=== PATIENT | male | born 1945 | race Caucasian/White ===

== ENCOUNTER 2016-06-24 13:57 | Inpatient (IN) | payer MEDICARE, BC ==
[2016-06-24] MEDS ORDERED: Sodium Chloride 0.9% 10 ML Syringe FLUSH PRN (15:12)
[2016-06-24] MEDS ORDERED: Bisacodyl 5 MG Tab PO ONE (15:30)
[2016-06-24] MEDS ORDERED: BISACODYL 5 MG PO ONE (16:00)
[2016-06-24] MEDS ORDERED: Acetaminophen 325 MG Tab PO PRN (16:12)
[2016-06-24] MEDS ORDERED: POLYETHYLENE GLYCOL 238 GM PO ONE (17:00)
[2016-06-24] MEDS: BISACODYL 5 MG PO ONE ×2 (19:39)
[2016-06-24] MEDS ORDERED: Non-Formulary Medication 1 Each (Acetaminophen [Acetaminophen Er] 650 MG) PO PRN (23:05)
[2016-06-24] MEDS ORDERED: Zinc Oxide 20% Oint 453.6 GM Jar TOP SCH (23:15)
--- NOTE | 2016-06-24 23:44 | PCM.HP ---
H&P History of Present Illness - General Date of Service: 06/24/16 Admit Problem/Dx: Admission Diagnosis/Problem Admission Diagnosis/Problem Diarrhea Source of Information: Patient, Old records History Limitations: Reports: No limitations - History of Present Illness Initial Comments - Free Text/Narative: Yariel comes in for evaluation he's been having diarrhea recently for several months actually and comes in for a colonoscopy to be done tomorrow morning. He is disabled has had a cerebrovascular accident in the past and is unable to care for himself alone. Onset of Symptoms: Reports: gradual Duration of Symptoms: Reports: Week(s): Location: Reports: other (diarrhea) - Related Data Allergies/Adverse Reactions: Allergies Allergy/AdvReac Type Severity Reaction Status Date / Time latex Allergy Rash Verified 06/24/16 15:16 Home Medications: Home Meds Acetaminophen [Acetaminophen ER] 650 mg PO Q4HR PRN 06/22/16 [History] Potassium Chloride 10 meq PO DAILY 06/22/16 [History] Rosuvastatin Calcium 10 mg PO DAILY 06/22/16 [History] Verapamil HCl [Verapamil ER Pm] 100 mg PO DAILY 06/22/16 [History] Zinc Oxide [Zinc Oxide 20% Oint] 1 gm TOP ASDIRECTED 06/22/16 [History] predniSONE [Prednisone] 2.5 mg PO DAILY 06/22/16 [History] Past Medical History HEENT History: Reports: Cataract, Impaired vision Cardiovascular History: Reports: Angina, High cholesterol, Hypertension, SOB on exertion Respiratory History: Reports: COPD Genitourinary History: Reports: Renal calculus Musculoskeletal History: Reports: Back pain, chronic, Neck pain, chronic Other Neuro History: right side partial paralysis Psychiatric History: Reports: Anxiety, Depression Endocrine/Metabolic History: Reports: Diabetes, type II Other Dermatologic History: yeast infection - Infectious Disease History Infectious Disease History: Reports: Chicken pox, Measles, Mumps - Past Surgical History GI Surgical History: Reports: Hernia, abdominal Male Surgical History: Reports: Lithotripsy (ESWL) Other Neurological Surgeries/Procedures: partial severed c-spine - plate in place Social & Family History - Tobacco Use Smoking Status *Q: Never Smoker Second Hand Smoke Exposure: No - Caffeine Use Caffeine Use: Reports: Coffee - Recreational Drug Use Recreational Drug Use: No H&P Review of Systems - Review of Systems: Review Of Systems: See Below General: Reports: weakness, fatigue HEENT: Reports: no symptoms Pulmonary: Reports: shortness of breath Cardiovascular: Reports: no symptoms Gastrointestinal: Reports: Diarrhea Genitourinary: Reports: no symptoms Musculoskeletal: Reports: no symptoms Skin: Reports: no symptoms Psychiatric: Reports: no symptoms Neurological: Reports: no symptoms Exam - Exam Exam: See Below - Vital Signs Vital Signs: Last Vital Signs Temp 94.8 F L 06/24/16 22:33 Pulse 70 06/24/16 22:33 Resp 18 06/24/16 22:33 BP 144/80 H 06/24/16 22:33 Pulse Ox 94 L 06/24/16 22:33 Weight: 169 lb 8 oz - Exam General: alert, oriented, 4 HEENT: PERRLA, Hearing intact, Mucosa moist & pink, Nares patent, Normal nasal septum, Posterior pharynx clear, Conjunctiva clear, EOMI, EACs clear, TMs clear Neck: supple Lungs: Clear to auscultation, Normal respiratory effort Cardiovascular: regular rate, regular rhythm Abdomen: normal bowel sounds, soft Back Exam: normal inspection, full range of motion, NT Extremities: other (no acute pathology is evident.) Peripheral Pulses: 1+: carotid (L), carotid (R), brachial (R), radial (L) Skin: warm, dry, intact Neuro Extensive - Mental Status: alert, oriented x3 Neuro Extensive - Motor, Sensory, Reflexes: CN II-XII intact, abnormal gait Psychiatric: anxious - Patient Data Lab Results last 24 hrs: Laboratory Results - last 24 hr 06/24/16 Range/Units 23:20 WBC 7.7 (4.5-11.0) K/uL RBC 5.11 (4.30-5.90) M/uL Hgb 14.5 (12.0-15.0) g/dL Hct 43.8 (40.0-54.0) % MCV 86 (80-98) fL MCH 28 (27-31) pg MCHC 33 (32-36) % Plt Count 323 (150-400) K/uL Neut % (Auto) 56 (36-66) % Lymph % (Auto) 23 L (24-44) % [place] % (Auto) 16 H (2-6) % Eos % (Auto) 5 H (2-4) % Baso % (Auto) 1 (0-1) % Result Diagrams: 06/24/16 23:20 *Q Meaningful Use (ADM) - VTE *Q VTE Criteria *Q: - Stroke *Q Stroke Criteria *Q: - AMI *Q AMI Criteria *Q: Problem List Initiated/Reviewed/Updated: Yes Orders Last 24hrs: Active Orders 24 hr Category Date Time Status Patient Status [ADT] Routine ADT 06/24/16 22:56 Active Bedrest Bedside Commode [RC] ASDIRECTED Care 06/24/16 22:55 Active Height and Weight [RC] DAILY Care 06/24/16 22:55 Active Intake and Output [RC] QSHIFT Care 06/24/16 23:01 Active Oxygen Therapy [RC] PRN Care 06/24/16 22:56 Active Peripheral IV Care [RC] . DIRECTED Care 06/24/16 15:12 Active Up to Chair [RC] QID Care 06/24/16 22:55 Active VTE/DVT Education [RC] Per Unit Routine Care 06/24/16 22:56 Active Vital Signs [RC] Q4H Care 06/24/16 22:56 Active NPO After Midnight [Nothing per Oral After Midnight Diet 06/24/16 Dinner Active Diet] [DIET] COMPREHENSIVE METABOLIC PN,CMP [CHEM] Routine Lab 06/24/16 23:20 Received Acetaminophen [Acetaminophen ER] Med 06/24/16 23:05 Pending 650 mg PO Q4HR PRN Acetaminophen [Tylenol] Med 06/24/16 16:12 Active 650 mg PO Q4H PRN Hydrochlorothiazide Med 06/25/16 05:00 Active 12.5 mg PO DAILY@0500 Patient's Own Medication [Ptom] Med 06/25/16 05:00 Active 0 each PO DAILY@0500 Patient's Own Medication [Ptom] Med 06/25/16 05:00 Active 0 each PO DAILY@0500 Potassium Chloride Med 06/25/16 09:00 Active 10 meq PO DAILY Potassium Chloride Med 06/25/16 05:00 Active 10 meq PO DAILY@0500 Rosuvastatin [Crestor] Med 06/25/16 09:00 Active 10 mg PO DAILY Simvastatin [Zocor] Med 06/25/16 05:00 Active 10 mg PO DAILY@0500 Sodium Chloride 0.9% [Saline Flush] Med 06/24/16 15:12 Active 10 ml FLUSH ASDIRECTED PRN Verapamil [Calan SR] Med 06/25/16 05:00 Active 240 mg PO DAILY@0500 Verapamil [Verelan PM] Med 06/25/16 09:00 Active 100 mg PO DAILY Zinc Oxide [Zinc Oxide 20% Oint] Med 06/24/16 23:15 Pending 1 gm TOP ASDIRECTED Peripheral IV Insertion Adult [OM.PC] Routine Oth 06/24/16 15:12 Ordered Resuscitation Status Routine Resus Stat 06/24/16 22:55 Ordered Medication Orders Acetaminophen (Tylenol) 650 mg PO Q4H PRN PRN Reason: PAIN Hydrochlorothiazide (Hydrochlorothiazide) 12.5 mg PO DAILY@0500 COUNTS INCLUDE 234 BEDS AT THE [facility] Multi-Ingred Cream/Lotion/Oil/Oint (Zinc Oxide 20% Oint) 1 gm TOP ASDIRECTED COUNTS INCLUDE 234 BEDS AT THE [facility] Non-Formulary Medication (Acetaminophen [Acetaminophen Er]) 650 mg PO Q4HR PRN PRN Reason: Pain Prednisone 2.5 Mg (TabPom) 0 each PO DAILY@0500 COUNTS INCLUDE 234 BEDS AT THE [facility] Century Complete (VitaminPom) 0 each PO DAILY@0500 COUNTS INCLUDE 234 BEDS AT THE [facility] Potassium Chloride (Potassium Chloride) 10 meq PO DAILY@0500 COUNTS INCLUDE 234 BEDS AT THE [facility] Potassium Chloride (Potassium Chloride) 10 meq PO DAILY COUNTS INCLUDE 234 BEDS AT THE [facility] Rosuvastatin Calcium (Crestor) 10 mg PO DAILY [facility]UBIA Simvastatin (Zocor) 10 mg PO DAILY@0500 COUNTS INCLUDE 234 BEDS AT THE [facility] Sodium Chloride (Saline Flush) 10 ml FLUSH ASDIRECTED PRN PRN Reason: Keep Vein Open Verapamil HCl (Calan Sr) 240 mg PO DAILY@0500 COUNTS INCLUDE 234 BEDS AT THE [facility] Verapamil HCl (Verelan Pm) 100 mg PO DAILY COUNTS INCLUDE 234 BEDS AT THE [facility] Assessment/Plan Comment:: Assessment/Plan: #1. Diarrhea. I brought into the hospital as we did do his prep is he is disabled and unable to care for himself taking the laxatives. a colonoscopy is scheduled for tomorrow. #2. Cervical neck injury with spinal cord injury. #3. Hypertension. we'll continue with this medication. #4. Hyperlipidemia. We'll continue with rosuvastatin.
[2016-06-25] MEDS ORDERED: Potassium Chloride 20 MEQ Tab.ER PO ONE (00:15)
[2016-06-25] MEDS: Potassium Chloride 20 MEQ in Premix Bag 1 BAG IV SCH ×3 (00:46→05:56)
[2016-06-25] MEDS ORDERED: Zinc Oxide 20% Oint 56.7 GM Tube TOP PRN (01:32)
[2016-06-25] MEDS ORDERED: PREDNISONE 2.5 MG PO SCH (05:00)
[2016-06-25] MEDS ORDERED: VERAPAMIL 240 MG PO SCH (05:00)
[2016-06-25] MEDS ORDERED: SIMVASTATIN 20 MG PO SCH (05:00)
[2016-06-25] MEDS ORDERED: POTASSIUM CHLORIDE 10 MEQ PO SCH (05:00)
[2016-06-25] MEDS ORDERED: [UNRECOGNIZED DRUG - OTHER] PO SCH (05:00)
[2016-06-25] MEDS ORDERED: HYDROCHLOROTHIAZIDE 12.5 MG PO SCH (05:00)
[2016-06-25] MEDS ORDERED: Midazolam 1 MG/ML 2 ML SDV ONE (08:10)
[2016-06-25] MEDS ORDERED: fentaNYL 100 MCG/2 ML SDV ONE (08:10)
[2016-06-25] MEDS ORDERED: Propofol 200 MG/20 ML SDV ONE ×2 (08:10→09:25)
[2016-06-25] MEDS ORDERED: VERAPAMIL PM 100 MG PO SCH (09:00)
[2016-06-25] MEDS ORDERED: Potassium Chloride 10 MEQ Cap.ER PO SCH (09:00)
--- NOTE | 2016-06-25 09:42 | PCM.OPNOTE ---
- General Post-Op/Procedure Note Date of Surgery/Procedure: 06/25/16 Findings: megacolon Pre Op Diagnosis: diarrhea, change in bowel habits Post-Op Diagnosis: no acute pathology. Megacolon Primary Surgeon: Juarez Wall Sr Condition: Stable Free Text/Narrative:: Yariel is a 71-year-old male comes in because of change in bowel habits and diarrhea comes in for colonoscopy.The risks and benefits were explained to the patient was taken to the or. Anesthesia was given by nurse desktop architect. During the procedure we used 2 mg of Versed 2 mL of fentanyl and 400 mg of propofol. The Olympus 180L scope was used. With the gloved finger the rectum was examined and there and they irregularity of the prostate which is firm with a nodule on the right. The tube was placed into the rectum and advanced under direct vision. There is a large amount of fluid noted in the colon 500 mL of fluid area we had to put in pressure and abdomen order to get to the cecum. . At the cecum noted no abnormality. Upon retraction of the tube noted no mucosal lesion ulceration or abnormality throughout the entire colon. There is mild erythema noted at the rectum. The tube was removed the patient tolerated the procedure well. Preop: Change in bowel habits, diarrhea. Postop: No acute pathology noted. megacolon. This does explain his change in bowel habits and diarrhea.
--- NOTE | 2016-06-25 13:46 | CR ---
Abdomen 2V AP Flat Upright HISTORY: Follow-up colonoscopy. COMPARISON: 03/22/2015. FINDINGS: Distention of the transverse colon. This is likely ileus post colonoscopy. No strong evide nce for obstruction. No free air seen.
[2016-06-25] MEDS: Rosuvastatin 10 MG Tab PO SCH (16:03)
[2016-06-25] MEDS: Dextrose 5%-Lactated Ringers 1,000 ML IV SCH (16:16)
[2016-06-25] MEDS: Potassium Chloride 20 MEQ, Lidocaine 1% 2 ML in Sodium Chloride 0.9% 100 ML IV SCH ×4 (16:56→23:26)
--- NOTE | 2016-06-25 18:40 | PCM.PN ---
- General Info Date of Service: 06/25/16 Subjective Update: He continues to have diarrhea and we spoke with him after the colonoscopy I got the report of a flat plate and I feel that he is making: He wants something done. He is anxious to have the diarrhea controlled. - Review of Systems General: Reports: weakness HEENT: Reports: no symptoms Pulmonary: Reports: no symptoms Cardiovascular: Reports: no symptoms Gastrointestinal: Reports: Diarrhea Genitourinary: Reports: no symptoms Musculoskeletal: Reports: other (Consistent with the right sided weakness after the spinal cord injury) Skin: Reports: no symptoms Neurological: Reports: difficulty walking, weakness, gait disturbance Psychiatric: Reports: depression, anxiety - Patient Data Vitals - most recent: Last Vital Signs Temp 96.7 F 06/25/16 14:22 Pulse 70 06/25/16 14:22 Resp 16 06/25/16 14:22 BP 130/67 06/25/16 14:22 Pulse Ox 98 06/25/16 14:22 Weight - most recent: 169 lb 8.003 oz I&O - last 24 hours: Intake & Output 06/25/16 06/25/16 06/25/16 06:59 14:59 22:59 Intake Total 200 75 820 Output Total 225 Balance 200 75 595 Lab Results last 24 hrs: Laboratory Results - last 24 hr 06/24/16 06/24/16 06/25/16 Range/Units 23:20 23:20 10:25 WBC 7.7 (4.5-11.0) K/uL RBC 5.11 (4.30-5.90) M/uL Hgb 14.5 (12.0-15.0) g/dL Hct 43.8 (40.0-54.0) % MCV 86 (80-98) fL MCH 28 (27-31) pg MCHC 33 (32-36) % Plt Count 323 (150-400) K/uL Neut % (Auto) 56 (36-66) % Lymph % (Auto) 23 L (24-44) % [place] % (Auto) 16 H (2-6) % Eos % (Auto) 5 H (2-4) % Baso % (Auto) 1 (0-1) % Sodium 138 L (140-148) mmol/L Potassium 2.4 L* (3.6-5.2) mmol/L Chloride 97 L (100-108) mmol/L Carbon Dioxide 34 H (21-32) mmol/L Anion Gap 9.4 (5.0-14.0) mmol/L BUN 13 (7-18) mg/dL Creatinine 0.9 (0.8-1.3) mg/dL Est Cr Clr Drug Dosing 69.36 mL/min Estimated GFR (MDRD) > 60 (>60) Glucose 83 (74-106) mg/dL Calcium 8.7 (8.5-10.1) mg/dL Total Bilirubin 0.9 D (0.2-1.0) mg/dL AST 20 (15-37) U/L ALT 27 (12-78) U/L Alkaline Phosphatase 75 (46-116) U/L Total Protein 7.4 (6.4-8.2) g/dL Albumin 3.5 (3.4-5.0) g/dL Globulin 3.9 H (2.3-3.5) g/dL Albumin/Globulin Ratio 0.9 L (1.2-2.2) Prostate Specific Ag 6.6 H (0.0-4.0) ug/L Med Orders - Current: Current Medications Acetaminophen (Tylenol) 650 mg PO Q4H PRN PRN Reason: PAIN Hydrochlorothiazide (Hydrochlorothiazide) 12.5 mg PO DAILY@0500 [facility] Dextrose/Lactated Ringer's (Dextrose 5%-Lactated Ringers) 1,000 mls @ 100 mls/ hr IV ASDIRECTED [facility] Last Admin: 06/25/16 16:16 Dose: 100 mls/hr Potassium Chloride 20 meq/Lidocaine HCl 2 ml/ Sodium Chloride 112 mls @ 56 mls/ hr IV Q2H [facility] Stop: 06/26/16 02:59 Last Admin: 06/25/16 16:56 Dose: 56 mls/hr Multi-Ingred Cream/Lotion/Oil/Oint (Zinc Oxide) 0 gm TOP Q1H PRN PRN Reason: Rash Multivitamins/Minerals (Thera M Plus) 1 tab PO DAILY@0500 [facility] Potassium Chloride (Potassium Chloride) 10 meq PO DAILY@0500 [facility] Prednisone (Prednisone) 3.75 mg PO DAILY@0500 [facility] Rosuvastatin Calcium (Crestor) 10 mg PO DAILY [facility] Last Admin: 06/25/16 16:03 Dose: Not Given Sodium Chloride (Saline Flush) 10 ml FLUSH ASDIRECTED PRN PRN Reason: Keep Vein Open Verapamil HCl (Calan Sr) 240 mg PO DAILY@0500 [facility] Discontinued Medications Bisacodyl (Dulcolax) 10 mg PO ONETIME ONE Stop: 06/24/16 15:31 Last Admin: 06/24/16 19:41 Dose: Not Given Bisacodyl (Dulcolax) 10 mg PO ONETIME ONE Stop: 06/24/16 20:01 Last Admin: 06/24/16 19:39 Dose: Not Given Bisacodyl (Dulcolax) 10 mg PO ONETIME ONE Stop: 06/24/16 16:01 Last Admin: 06/24/16 16:14 Dose: 10 mg Fentanyl (Sublimaze) Confirm Administered Dose 100 mcg .ROUTE .STK-MED ONE Stop: 06/25/16 08:11 Hydrochlorothiazide (Hydrochlorothiazide) 12.5 mg PO DAILY@0500 [facility] Last Admin: 06/25/16 12:22 Dose: 12.5 mg Potassium Chloride 20 meq/ (Premix) 100 mls @ 50 mls/hr IV Q2H [facility] Stop: 06/25/16 05:59 Last Admin: 06/25/16 05:56 Dose: 50 mls/hr Lidocaine HCl (Xylocaine-Mpf 1%) 10 ml INJECT ONETIME ONE Stop: 06/25/16 00:17 Last Admin: 06/25/16 00:47 Dose: 2 ml Lidocaine HCl (Xylocaine-Mpf 1%) Confirm Administered Dose 5 ml .ROUTE .STK-MED ONE Stop: 06/25/16 04:36 Last Admin: 06/25/16 05:57 Dose: 2 ml Midazolam HCl (Versed 1 Mg/Ml) Confirm Administered Dose 2 mg .ROUTE .STK-MED ONE Stop: 06/25/16 08:11 Multi-Ingred Cream/Lotion/Oil/Oint (Zinc Oxide 20% Oint) 1 gm TOP ASDIRECTED [facility] Non-Formulary Medication (Acetaminophen [Acetaminophen Er]) 650 mg PO Q4HR PRN PRN Reason: Pain Prednisone 2.5 Mg (TabPom) 0 each PO DAILY@0500 [facility] Last Admin: 06/25/16 12:23 Dose: 1 each Century Complete (VitaminPom) 0 each PO DAILY@0500 [facility] Last Admin: 06/25/16 12:23 Dose: 1 each Polyethylene Glycol (Miralax) 238 gm PO ONETIME ONE Stop: 06/24/16 17:01 Last Admin: 06/24/16 17:02 Dose: 238 gm Potassium Chloride (Potassium Chloride) 10 meq PO DAILY@0500 [facility] Last Admin: 06/25/16 12:22 Dose: 10 meq Potassium Chloride (Potassium Chloride) 10 meq PO DAILY [facility] Potassium Chloride (Klor-Con M20) 40 meq PO ONETIME ONE Stop: 06/25/16 00:16 Last Admin: 06/25/16 00:53 Dose: 40 meq Propofol (Diprivan 20 Ml) Confirm Administered Dose 200 mg .ROUTE .STK-MED ONE Stop: 06/25/16 08:11 Propofol (Diprivan 20 Ml) Confirm Administered Dose 200 mg .ROUTE .STK-MED ONE Stop: 06/25/16 09:26 Simvastatin (Zocor) 10 mg PO DAILY@0500 [facility] Verapamil HCl (Calan Sr) 240 mg PO DAILY@0500 [facility] Last Admin: 06/25/16 12:22 Dose: 240 mg Verapamil HCl (Verelan Pm) 100 mg PO DAILY [facility] - Exam General: alert, oriented, cooperative, mild distress HEENT: Pupils equal, Pupils reactive, EOMI, Mucous membr. moist/pink Neck: supple Lungs: Clear to auscultation, Normal respiratory effort Cardiovascular: regular rate, regular rhythm Abdomen: bowel sounds present, soft, no tenderness, no distension Peripheral Pulses: 1+: radial (L), radial (R) Skin: warm, dry, intact Neurological: no new focal deficit Psy/Mental Status: alert, anxious - Problem List Review Problem List Initiated/Reviewed/Updated: Yes - My Orders Last 24 Hours: My Active Orders 06/24/16 22:55 Bedrest Bedside Commode [RC] ASDIRECTED Height and Weight [RC] DAILY Up to Chair [RC] QID Resuscitation Status Routine 06/24/16 22:56 Patient Status [ADT] Routine Oxygen Therapy [RC] PRN VTE/DVT Education [RC] Per Unit Routine Vital Signs [RC] Q4H 06/24/16 23:01 Intake and Output [RC] QSHIFT 06/25/16 01:32 Zinc Oxide 0 gm TOP Q1H PRN 06/25/16 08:45 Verify Patient Consent Obtain [RC] ASDIRECTED 06/25/16 09:00 Rosuvastatin [Crestor] 10 mg PO DAILY 06/25/16 Lunch Regular Diet [DIET] 06/26/16 05:00 Hydrochlorothiazide 12.5 mg PO DAILY@0500 Multivitamins w-Iron/Ca/FA/Min [Thera M Plus] 1 tab PO DAILY@0500 Potassium Chloride 10 meq PO DAILY@0500 Verapamil [Calan SR] 240 mg PO DAILY@0500 predniSONE 3.75 mg PO DAILY@0500 06/26/16 14:52 Ready for Discharge [RC] PER UNIT ROUTINE - Plan Plan:: Assessment/Plan: #1. Diarrhea. I did do a colonoscopy this morning which found a very large colon consistent with megacolon. There is no other acute pathology noted in the colon. I did get a flat and upright of the abdomen which showed a very large colon. I feel that he needs to have a colectomy and a colostomy as the problem may have been caused by inactivity and his spinal cord injury. I spoke with Yariel as well as his sister and they are in favor of having something done as he is unable to control his bowel movements at home. He said at night his bowels move continually and when he tries to go to bathroom and he has incontinence and leaks on the floor. I have spoken with Dr. Javier Roberts who performed a colectomy tomorrow. #2. Cervical neck injury with spinal cord injury. #3. Hypertension. we'll continue with this medication. #4. Hyperlipidemia. We'll continue with rosuvastatin. #5. Hypokalemia: This is secondary to his constant diarrhea and I had been replacing his potassium. As it was 2.4 this morning I will do another potassium check this evening.
[2016-06-26] MEDS: Potassium Chloride 20 MEQ, Lidocaine 1% 2 ML in Sodium Chloride 0.9% 100 ML IV SCH ×3 (01:56→10:25)
[2016-06-26] MEDS: Dextrose 5%-Lactated Ringers 1,000 ML IV SCH ×2 (01:58→13:36)
[2016-06-26] MEDS ORDERED: Potassium Chloride 10 MEQ Cap.ER PO SCH (05:00)
[2016-06-26] MEDS ORDERED: predniSONE 5 MG Tab PO SCH (05:00)
[2016-06-26] MEDS ORDERED: cefOXitin 2 GM in Sodium Chloride 0.9% 50 ML IV ONE (07:15)
--- NOTE | 2016-06-26 08:36 | PCM.PN ---
- General Info Date of Service: 06/26/16 Subjective Update: He has no complaints at the present time is looking forward to having the colon taken out so he can control his bowels. Functional Status: Reports: pain controlled - Review of Systems General: Reports: no symptoms HEENT: Reports: no symptoms Pulmonary: Reports: no symptoms Cardiovascular: Reports: no symptoms Gastrointestinal: Reports: Diarrhea Genitourinary: Reports: no symptoms Skin: Reports: no symptoms Neurological: Reports: no symptoms Psychiatric: Reports: no symptoms - Patient Data Vitals - most recent: Last Vital Signs Temp 96.4 F 06/26/16 07:00 Pulse 66 06/26/16 07:00 Resp 18 06/26/16 07:00 BP 128/80 06/26/16 07:00 Pulse Ox 94 L 06/26/16 07:00 Weight - most recent: 169 lb 8.003 oz I&O - last 24 hours: Intake & Output 06/25/16 06/26/16 06/26/16 22:59 06:59 14:59 Intake Total 920 1465 Output Total 950 200 Balance -30 1265 Lab Results last 24 hrs: Laboratory Results - last 24 hr 06/25/16 06/25/16 06/26/16 Range/Units 10:25 18:52 04:00 WBC (4.5-11.0) K/uL RBC (4.30-5.90) M/uL Hgb (12.0-15.0) g/dL Hct (40.0-54.0) % MCV (80-98) fL MCH (27-31) pg MCHC (32-36) % Plt Count (150-400) K/uL Neut % (Auto) (36-66) % Lymph % (Auto) (24-44) % [place] % (Auto) (2-6) % Eos % (Auto) (2-4) % Baso % (Auto) (0-1) % Sodium 143 (140-148) mmol/L Potassium 3.4 L 3.3 L (3.6-5.2) mmol/L Chloride 107 (100-108) mmol/L Carbon Dioxide 31 (21-32) mmol/L Anion Gap 8.3 (5.0-14.0) mmol/L BUN 11 (7-18) mg/dL Creatinine 0.8 (0.8-1.3) mg/dL Est Cr Clr Drug Dosing 77.84 mL/min Estimated GFR (MDRD) > 60 (>60) Glucose 111 H (74-106) mg/dL Calcium 7.9 L (8.5-10.1) mg/dL Phosphorus 3.2 (2.5-4.9) mg/dL Magnesium 1.7 L (1.8-2.4) mg/dL [id number] Pept 203 H (5-125) pg/mL Prostate Specific Ag 6.6 H (0.0-4.0) ug/L 06/26/16 Range/Units 05:11 WBC 6.4 (4.5-11.0) K/uL RBC 4.80 (4.30-5.90) M/uL Hgb 13.6 (12.0-15.0) g/dL Hct 41.4 (40.0-54.0) % MCV 86 (80-98) fL MCH 28 (27-31) pg MCHC 33 (32-36) % Plt Count 301 (150-400) K/uL Neut % (Auto) 45 (36-66) % Lymph % (Auto) 33 (24-44) % [place] % (Auto) 15 H (2-6) % Eos % (Auto) 6 H (2-4) % Baso % (Auto) 1 (0-1) % Sodium (140-148) mmol/L Potassium (3.6-5.2) mmol/L Chloride (100-108) mmol/L Carbon Dioxide (21-32) mmol/L Anion Gap (5.0-14.0) mmol/L BUN (7-18) mg/dL Creatinine (0.8-1.3) mg/dL Est Cr Clr Drug Dosing mL/min Estimated GFR (MDRD) (>60) Glucose (74-106) mg/dL Calcium (8.5-10.1) mg/dL Phosphorus (2.5-4.9) mg/dL Magnesium (1.8-2.4) mg/dL [id number] Pept (5-125) pg/mL Prostate Specific Ag (0.0-4.0) ug/L Med Orders - Current: Current Medications Acetaminophen (Tylenol) 650 mg PO Q4H PRN PRN Reason: PAIN Last Admin: 06/25/16 21:23 Dose: 650 mg Hydrochlorothiazide (Hydrochlorothiazide) 12.5 mg PO DAILY@0500 [facility] Dextrose/Lactated Ringer's (Dextrose 5%-Lactated Ringers) 1,000 mls @ 100 mls/ hr IV ASDIRECTED [facility] Last Admin: 06/26/16 01:58 Dose: 100 mls/hr Potassium Chloride 20 meq/Lidocaine HCl 2 ml/ Sodium Chloride 112 mls @ 56 mls/ hr IV Q2H RUBIA Stop: 06/26/16 11:29 Last Admin: 06/26/16 07:22 Dose: 56 mls/hr Methylprednisolone Sodium Succinate (Solu-Medrol) 60 mg IVPUSH ONCALL ONE Stop: 06/26/16 13:01 Multi-Ingred Cream/Lotion/Oil/Oint (Zinc Oxide) 0 gm TOP Q1H PRN PRN Reason: Rash Multivitamins/Minerals (Thera M Plus) 1 tab PO DAILY@0500 [facility] Potassium Chloride (Potassium Chloride) 10 meq PO DAILY@0500 [facility] Prednisone (Prednisone) 3.75 mg PO DAILY@0500 [facility] Rosuvastatin Calcium (Crestor) 10 mg PO DAILY [facility] Last Admin: 06/25/16 16:03 Dose: Not Given Sodium Chloride (Saline Flush) 10 ml FLUSH ASDIRECTED PRN PRN Reason: Keep Vein Open Verapamil HCl (Calan Sr) 240 mg PO DAILY@0500 [facility] Discontinued Medications Bisacodyl (Dulcolax) 10 mg PO ONETIME ONE Stop: 06/24/16 15:31 Last Admin: 06/24/16 19:41 Dose: Not Given Bisacodyl (Dulcolax) 10 mg PO ONETIME ONE Stop: 06/24/16 20:01 Last Admin: 06/24/16 19:39 Dose: Not Given Bisacodyl (Dulcolax) 10 mg PO ONETIME ONE Stop: 06/24/16 16:01 Last Admin: 06/24/16 16:14 Dose: 10 mg Fentanyl (Sublimaze) Confirm Administered Dose 100 mcg .ROUTE .STK-MED ONE Stop: 06/25/16 08:11 Hydrochlorothiazide (Hydrochlorothiazide) 12.5 mg PO DAILY@0500 [facility] Last Admin: 06/25/16 12:22 Dose: 12.5 mg Potassium Chloride 20 meq/ (Premix) 100 mls @ 50 mls/hr IV Q2H [facility] Stop: 06/25/16 05:59 Last Admin: 06/25/16 05:56 Dose: 50 mls/hr Potassium Chloride 20 meq/Lidocaine HCl 2 ml/ Sodium Chloride 112 mls @ 56 mls/ hr IV Q2H [facility] Stop: 06/26/16 02:59 Last Admin: 06/26/16 01:56 Dose: 56 mls/hr Cefoxitin Sodium 2 gm/ Sodium (Chloride) 50 mls @ 100 mls/hr IV ONCALL ONE Stop: 06/26/16 07:44 Lidocaine HCl (Xylocaine-Mpf 1%) 10 ml INJECT ONETIME ONE Stop: 06/25/16 00:17 Last Admin: 06/25/16 00:47 Dose: 2 ml Lidocaine HCl (Xylocaine-Mpf 1%) Confirm Administered Dose 5 ml .ROUTE .STK-MED ONE Stop: 06/25/16 04:36 Last Admin: 06/25/16 05:57 Dose: 2 ml Midazolam HCl (Versed 1 Mg/Ml) Confirm Administered Dose 2 mg .ROUTE .STK-MED ONE Stop: 06/25/16 08:11 Multi-Ingred Cream/Lotion/Oil/Oint (Zinc Oxide 20% Oint) 1 gm TOP ASDIRECTED [facility] Non-Formulary Medication (Acetaminophen [Acetaminophen Er]) 650 mg PO Q4HR PRN PRN Reason: Pain Prednisone 2.5 Mg (TabPom) 0 each PO DAILY@0500 [facility] Last Admin: 06/25/16 12:23 Dose: 1 each Century Complete (VitaminPom) 0 each PO DAILY@0500 [facility] Last Admin: 06/25/16 12:23 Dose: 1 each Polyethylene Glycol (Miralax) 238 gm PO ONETIME ONE Stop: 06/24/16 17:01 Last Admin: 06/24/16 17:02 Dose: 238 gm Potassium Chloride (Potassium Chloride) 10 meq PO DAILY@0500 [facility] Last Admin: 06/25/16 12:22 Dose: 10 meq Potassium Chloride (Potassium Chloride) 10 meq PO DAILY [facility] Potassium Chloride (Klor-Con M20) 40 meq PO ONETIME ONE Stop: 06/25/16 00:16 Last Admin: 06/25/16 00:53 Dose: 40 meq Propofol (Diprivan 20 Ml) Confirm Administered Dose 200 mg .ROUTE .STK-MED ONE Stop: 06/25/16 08:11 Propofol (Diprivan 20 Ml) Confirm Administered Dose 200 mg .ROUTE .STK-MED ONE Stop: 06/25/16 09:26 Simvastatin (Zocor) 10 mg PO DAILY@0500 [facility] Last Admin: 06/26/16 04:30 Dose: Not Given Verapamil HCl (Calan Sr) 240 mg PO DAILY@0500 [facility] Last Admin: 06/25/16 12:22 Dose: 240 mg Verapamil HCl (Verelan Pm) 100 mg PO DAILY [facility] - Exam General: alert, oriented HEENT: Pupils equal, Pupils reactive, EOMI, Mucous membr. moist/pink Neck: supple Lungs: Clear to auscultation, Normal respiratory effort Cardiovascular: regular rate, regular rhythm Abdomen: bowel sounds present, soft, no tenderness, no distension Peripheral Pulses: 1+: radial (L), radial (R) Skin: warm, dry, intact - Problem List Review Problem List Initiated/Reviewed/Updated: Yes - My Orders Last 24 Hours: My Active Orders 06/25/16 08:45 Verify Patient Consent Obtain [RC] ASDIRECTED 06/25/16 09:00 Rosuvastatin [Crestor] 10 mg PO DAILY 06/25/16 18:41 EKG 12 Lead [EK] Routine 06/26/16 05:00 Hydrochlorothiazide 12.5 mg PO DAILY@0500 Multivitamins w-Iron/Ca/FA/Min [Thera M Plus] 1 tab PO DAILY@0500 Potassium Chloride 10 meq PO DAILY@0500 Verapamil [Calan SR] 240 mg PO DAILY@0500 predniSONE 3.75 mg PO DAILY@0500 06/26/16 14:52 Ready for Discharge [RC] PER UNIT ROUTINE - Plan Plan:: Assessment/Plan: #1. Diarrhea. He is having a colectomy today and a colostomy. I feel that he is medically stable for the planned procedure. #3. Hypertension. we'll continue with this medication. #4. Hyperlipidemia. We'll continue with rosuvastatin. #5. Hypokalemia: This is secondary to his constant diarrhea and I had been replacing his potassium. As it was 2.4 this morning I will do another potassium check this evening. His potassium this morning was 3.3 supplementation is in progress.
[2016-06-26] MEDS: Verapamil 240 MG Tab.ER PO SCH (09:57)
[2016-06-26] MEDS: Hydrochlorothiazide 12.5 MG Cap PO SCH (10:24)
[2016-06-26] MEDS: Multivitamins with Iron/Calcium/Folic Acid/Minerals Tab PO SCH (10:28)
[2016-06-26] MEDS: Rosuvastatin 10 MG Tab PO SCH (10:29)
[2016-06-26] MEDS ORDERED: Naloxone 0.4 MG/ML SDV IVPUSH PRN (10:36)
[2016-06-26] MEDS ORDERED: Naloxone 0.4 MG/ML SDV IV PRN (10:39)
[2016-06-26] MEDS: HYDROmorphone/Normal Saline 15 MG/30 ML PCA IV PRN (10:44)
[2016-06-26] MEDS ORDERED: Meropenem 500 MG SDV IV ONE (11:08)
[2016-06-26] MEDS ORDERED: fentaNYL 250 MCG/5 ML SDV ONE (12:09)
[2016-06-26] MEDS ORDERED: Ondansetron 4 MG/2 ML SDV ONE (12:09)
[2016-06-26] MEDS ORDERED: Succinylcholine/Normal Saline 200 MG/10 ML Syringe ONE ×2 (12:09→15:54)
[2016-06-26] MEDS ORDERED: Neostigmine Methylsulfate 1 MG/ML 5 ML Syringe ONE (12:09)
[2016-06-26] MEDS ORDERED: Dexamethasone 4 MG/ML SDV ONE (12:09)
[2016-06-26] MEDS ORDERED: Rocuronium 50 MG/5 ML Vial ONE (12:09)
[2016-06-26] MEDS ORDERED: Propofol 200 MG/20 ML SDV ONE (12:09)
[2016-06-26] MEDS ORDERED: methylPREDNISolone Sodium Succinate 125 MG/2 ML SDV IVPUSH ONE (13:00)
[2016-06-26] MEDS ORDERED: Ketamine 500 MG/5 ML MDV ONE (14:32)
[2016-06-26] MEDS ORDERED: Midazolam 1 MG/ML 2 ML SDV ONE (14:33)
[2016-06-26] MEDS ORDERED: Sodium Chloride 0.9% 10 ML ONE (14:34)
[2016-06-26] MEDS: fentaNYL 12 MCG/HR Transdermal Patch TRDERM SCH (15:02)
[2016-06-26] MEDS ORDERED: Meropenem 500 MG SDV IRR ONE (16:00)
[2016-06-26] MEDS ORDERED: Zinc Oxide 20% Oint 56.7 GM Tube TOP PRN (17:28)
[2016-06-26] MEDS ORDERED: Ondansetron 4 MG/2 ML SDV IVPUSH PRN (17:30)
[2016-06-26] MEDS ORDERED: Acetaminophen 650 MG in Premix Bag 1 BAG IV PRN (17:33)
[2016-06-26] MEDS: FENTANYL PATCH CHECK TOP SCH ×2 (17:55→21:33)
[2016-06-26] MEDS: cefOXitin 2 GM in Sodium Chloride 0.9% 50 ML IV SCH (19:32)
[2016-06-26] MEDS: Zinc Oxide 20% Oint 56.7 GM Tube TOP SCH (21:34)
[2016-06-26] MEDS: methylPREDNISolone Sodium Succinate 125 MG/2 ML SDV IVPUSH SCH (21:34)
[2016-06-27] MEDS: Dextrose 5%-Lactated Ringers 1,000 ML IV SCH ×3 (00:30→14:28)
[2016-06-27] MEDS: cefOXitin 2 GM in Sodium Chloride 0.9% 50 ML IV SCH ×3 (03:19→14:29)
[2016-06-27] MEDS: Hydrochlorothiazide 12.5 MG Cap PO SCH (04:36)
[2016-06-27] MEDS: Verapamil 240 MG Tab.ER PO SCH (04:36)
[2016-06-27] MEDS: Multivitamins with Iron/Calcium/Folic Acid/Minerals Tab PO SCH (04:37)
[2016-06-27] MEDS: methylPREDNISolone Sodium Succinate 125 MG/2 ML SDV IVPUSH SCH (05:00)
[2016-06-27] MEDS ORDERED: methylPREDNISolone Sodium Succinate 40 MG/1 ML SDV IVPUSH ONE (09:00)
[2016-06-27] MEDS: Zinc Oxide 20% Oint 56.7 GM Tube TOP SCH ×2 (09:40→21:02)
[2016-06-27] MEDS: Magnesium Sulfate/Water 2 GM in Premix Bag 1 BAG IV SCH ×3 (09:40→23:49)
[2016-06-27] MEDS: FENTANYL PATCH CHECK TOP SCH ×2 (09:48→21:02)
[2016-06-27] MEDS: SODIUM CHLORIDE 0.9% IV SCH ×3 (11:35→21:01)
[2016-06-27] MEDS: POTASSIUM PHOSPHATES IV SCH ×3 (11:35→21:01)
[2016-06-27] MEDS: LIDOCAINE IV SCH ×3 (11:35→21:01)
[2016-06-28] MEDS: Magnesium Sulfate/Water 2 GM in Premix Bag 1 BAG IV SCH ×4 (05:07→21:51)
[2016-06-28] MEDS: Multivitamins with Iron/Calcium/Folic Acid/Minerals Tab PO SCH (05:08)
[2016-06-28] MEDS: Verapamil 240 MG Tab.ER PO SCH (05:08)
[2016-06-28] MEDS: Hydrochlorothiazide 12.5 MG Cap PO SCH (05:08)
[2016-06-28] MEDS ORDERED: Midazolam 1 MG/ML 2 ML SDV ONE (07:43)
[2016-06-28] MEDS ORDERED: Propofol 200 MG/20 ML SDV ONE (07:43)
[2016-06-28] MEDS ORDERED: fentaNYL 100 MCG/2 ML SDV ONE (07:43)
[2016-06-28] MEDS ORDERED: Lidocaine 1% with EPINEPHrine 1:100,000 50 ML MDV ONE (07:45)
[2016-06-28] MEDS ORDERED: Bupivacaine 0.5% 50 ML MDV ONE (07:45)
[2016-06-28] MEDS ORDERED: Meropenem 500 MG SDV ONE (07:53)
[2016-06-28] MEDS: FENTANYL PATCH CHECK TOP SCH ×2 (09:02→20:05)
[2016-06-28] MEDS: Zinc Oxide 20% Oint 56.7 GM Tube TOP SCH ×2 (09:04→20:04)
[2016-06-29] MEDS: Magnesium Sulfate/Water 2 GM in Premix Bag 1 BAG IV SCH ×4 (03:53→21:07)
[2016-06-29] MEDS: Hydrochlorothiazide 12.5 MG Cap PO SCH (03:59)
[2016-06-29] MEDS: Multivitamins with Iron/Calcium/Folic Acid/Minerals Tab PO SCH (03:59)
[2016-06-29] MEDS: Verapamil 240 MG Tab.ER PO SCH (03:59)
[2016-06-29] MEDS ORDERED: predniSONE 5 MG Tab PO ONE (09:00)
[2016-06-29] MEDS: FENTANYL PATCH CHECK TOP SCH ×2 (09:41→21:04)
[2016-06-29] MEDS: Zinc Oxide 20% Oint 56.7 GM Tube TOP SCH ×2 (09:43→21:07)
--- NOTE | 2016-06-29 10:59 | PN ---
DATE OF SERVICE: 06/29/2016 SUBJECTIVE: Yariel has been up ambulating. He has had 30 mL of a bloody drainage from his ileostomy in place. Vital signs have been stable. His white count yesterday was 22.8 and today it is 13.0. Hemoglobin was 11 and today it is 10.6. He is not passing any gas yet. He states, he is hungry, tired of ice chips. REVIEW OF SYSTEMS: Remainder of review of systems negative for any pertinent positives and negatives. OBJECTIVE: GENERAL: Yariel Moore is a 71-year-old male. He is alert and oriented. Color pale. VITAL SIGNS: TPR is 97.7, 104, 18, blood pressure 113/52. HEENT: Negative. NECK: Supple. HEART: Regular rate and rhythm. LUNGS: Clear. ABDOMEN: Dressings dry and intact. Abdominal binder is on. EXTREMITIES: Without peripheral edema. SOUMYA drains have put out 210, 210, and 15 mL respectively. ASSESSMENT: 1. Delayed primary closure for open abdominal incision on 06/28/2016. 2. Subtotal colectomy with ileostomy on 06/26/2016, for megacolon associated with fecal incontinence and small bowel resection. PLAN: 1. Prednisone 5 mg p.o. today. 2. Check CBC, CMP, mag, and phos. 3. We will evaluate p.r.n. or in a.m. Chen Santos PA-C /[id number]
--- NOTE | 2016-06-29 11:09 | PN ---
DATE OF SERVICE: 06/27/2016 The patient has been afebrile with stable vital signs. No major problems were noted overnight. The SOUMYA drainage has been fairly large, but there has not been much change in hemoglobin. The potassium, phosphate, and magnesium are all at lower margin, and these will be supplemented today. Otherwise will back down on the IV rate and plan the delayed primary closure tomorrow. We will leave the Nick catheter in for today to monitor urine output and then will probably get that out at the time of the closure tomorrow morning. Boy Roberts MD /[id number]
[2016-06-29] MEDS: Dextrose 5%-Lactated Ringers 1,000 ML IV SCH ×2 (11:59→21:12)
--- NOTE | 2016-06-29 13:35 | OR ---
DATE OF PROCEDURE: 06/28/2016 PREOPERATIVE DIAGNOSIS: Open abdominal incision. POSTOPERATIVE DIAGNOSIS: Open abdominal incision. PROCEDURE: Delayed primary closure of open abdominal incision. ANESTHESIA: IV sedation plus local. INDICATION FOR PROCEDURE: This is a 71-year-old status post a total abdominal colectomy with ileostomy 48 hours ago and at the time original procedure it was felt to be high risk for wound infection. Given this, the wound was packed open for a planned delayed primary closure at this time. Potential risks of procedure including bleeding and infection were reviewed, and the patient wishes to proceed. DETAILS OF PROCEDURE: The patient was taken to the operating room and placed in a supine position and sitting up roughly 30 degrees to limit aspiration risk. The abdominal dressing was taken down after IV sedation was administered and the wound found to be clean. The incision was then prepped and draped, anesthetized with 1% lidocaine mixed with Marcaine and irrigated with meropenem-containing saline solution. A 10-E[place] round Bradley-Menendez drain was then placed through stab wounds inferior to the incision and then draped across the incision which was then closed with 2 layers of 3-0 and 4-0 Vicryl stitch deep and rufino for the skin. The drain was affixed with some 3-0 Vicryl stitch, and the patient was taken to the recovery room in satisfactory condition. Boy Roberts MD /[id number]
--- NOTE | 2016-06-29 14:51 | PN ---
DATE OF SERVICE: 06/28/2016 Mr. Hernandez has been clinically is stable. He is not having anything out of the ostomy as of yet. Other than some serosanguineous drainage. No nausea or vomiting is reported. Overall, the patient is feeling a little bit more comfortable. The plan today will be to proceed with a delayed primary closure of abdominal incision along with removal of Nick catheter, otherwise, we will work on increasing activity and pulmonary toilet, and awaiting return of function of his ostomy. We will put him on some Dulcolax oral tablets on a schedule basis at this point. Boy Roberts MD /[id number]
[2016-06-29] MEDS: fentaNYL 12 MCG/HR Transdermal Patch TRDERM SCH (15:05)
[2016-06-30] MEDS: HYDROmorphone/Normal Saline 15 MG/30 ML PCA IV PRN (01:04)
[2016-06-30] MEDS: Multivitamins with Iron/Calcium/Folic Acid/Minerals Tab PO SCH (04:48)
[2016-06-30] MEDS: Verapamil 240 MG Tab.ER PO SCH (04:48)
[2016-06-30] MEDS: Magnesium Sulfate/Water 2 GM in Premix Bag 1 BAG IV SCH (04:48)
[2016-06-30] MEDS: Hydrochlorothiazide 12.5 MG Cap PO SCH (04:48)
[2016-06-30] MEDS: Dextrose 5%-Lactated Ringers 1,000 ML IV SCH (07:50)
[2016-06-30] MEDS ORDERED: Dextrose 5%-Lactated Ringers 1,000 ML IV SCH (08:30)
[2016-06-30] MEDS: Zinc Oxide 20% Oint 56.7 GM Tube TOP SCH ×2 (08:54→20:25)
[2016-06-30] MEDS: FENTANYL PATCH CHECK TOP SCH ×2 (09:21→20:25)
[2016-07-01] MEDS: Hydrochlorothiazide 12.5 MG Cap PO SCH (05:12)
[2016-07-01] MEDS: Verapamil 240 MG Tab.ER PO SCH (05:12)
[2016-07-01] MEDS: Multivitamins with Iron/Calcium/Folic Acid/Minerals Tab PO SCH (05:12)
[2016-07-01] MEDS ORDERED: Acetaminophen/HYDROcodone 325-5 MG Tab PO PRN (07:36)
[2016-07-01] MEDS: Zinc Oxide 20% Oint 56.7 GM Tube TOP SCH ×2 (08:30→22:19)
[2016-07-01] MEDS: FENTANYL PATCH CHECK TOP SCH ×2 (08:32→22:20)
--- NOTE | 2016-07-01 09:03 | PN ---
DATE OF SERVICE: 07/01/2016 SUBJECTIVE: Yariel is a 71-year-old male. He is alert and orientated. Vital signs have been stable. He has no concerns or questions today. He has been up ambulating. Currently sitting in the chair. Tolerating a full liquid diet well and pain has been controlled with the SILVER CLEANER. OBJECTIVE: GENERAL: Yariel Hernandez is a 71-year-old male. VITAL SIGNS: TPR is 96.8, 90, 18, and blood pressure 120/69. HEENT: Negative. NECK: Supple. HEART: Regular rate and rhythm. LUNGS: Clear. ABDOMEN: Incision looks good. Abdominal binder is on. Ileostomy in place and he has had 650 out of his ileostomy. EXTREMITIES: Without peripheral edema. ASSESSMENT: Delayed primary closure of open abdominal incision on 06/28/2016 and subtotal colectomy with ileostomy for megacolon associated with fecal incontinence and small bowel resection on 06/26/2016. PLAN: 1. Regular diet. 2. Dressing off, may shower. 3. Discontinue SILVER CLEANER and continuous pulse ox. 4. [place] 5/325 mg 1 to 2 every 4 hours p.r.n. pain. 5. Plan discharge when intermediate is available. Discharge planning was consulted. 6. Continue good pulmonary toilet. 7. We will evaluate p.r.n. or in a.m. Chen Santos PA-C /[id number]
--- NOTE | 2016-07-01 18:29 | PN ---
DATE OF SERVICE: 06/30/2016 The patient has been afebrile with stable vital signs. His ostomy was not working satisfactorily, will be on full liquid diet, backed down on the IV rate today. We will begin ostomy training today as well and have some discharge planning to begin looking at the potential options following discharge. Boy Roberts MD /[id number]
[2016-07-02] MEDS: Verapamil 240 MG Tab.ER PO SCH (04:39)
[2016-07-02] MEDS: Hydrochlorothiazide 12.5 MG Cap PO SCH (04:39)
[2016-07-02] MEDS: Multivitamins with Iron/Calcium/Folic Acid/Minerals Tab PO SCH (04:39)
[2016-07-02 07:19] VITALS: BP 98/54
[2016-07-02] MEDS: FENTANYL PATCH CHECK TOP SCH (08:07)
--- NOTE | 2016-07-02 08:09 | PROC ---
DATE OF PROCEDURE: 06/26/2016 PREOPERATIVE DIAGNOSIS: Bilateral venous stasis. POSTOPERATIVE DIAGNOSIS: Bilateral venous stasis. PROCEDURE: Bilateral Unna boot placement (58392 x 2). ANESTHESIA: None. DETAILS OF PROCEDURE: In the recovery room, the patient's previous Unna boots have been removed and the wound and skin inspected. At that point, bilateral Unna boots were placed from the base of the toes up to the upper calf. Over this, 4-inch Alex wrap was placed and the area was taped. The procedure was then concluded. Boy Roberts MD /[id number]
[2016-07-02] MEDS: Zinc Oxide 20% Oint 56.7 GM Tube TOP SCH (08:51)
[2016-07-02] MEDS ORDERED: fentaNYL 12 MCG/HR Transdermal Patch TRDERM SCH (09:00)
--- NOTE | 2016-07-02 10:29 | OR ---
DATE OF PROCEDURE: 06/26/2016 PREOPERATIVE DIAGNOSIS: Megacolon, associated with severe fecal incontinence. POSTOPERATIVE DIAGNOSES: 1. Megacolon, associated with severe fecal incontinence. 2. Excessive splenic flexure, at risk for postoperative bleeding. 3. Shortened small bowel mesentery. OPERATIVE PROCEDURE: Exploratory laparotomy with: 1. Total abdominal colectomy with end ileostomy and Lisa pouch (20146). 2. Excision of accessory spleen overlying portion of the splenic flexure mesentery (25530). 3. Small-bowel resection to allow formation of ileostomy (99404). 4. Placement of Vicryl mesh across the pelvic and abdominal wall to limit postoperative adhesion formation (66374). ANESTHESIA: General. INDICATION FOR PROCEDURE: A 71-year-old who presents with nearly continuous diarrhea and workup has shown to have a quite striking megacolon with entire abdominal colon being strikingly dilated. The patient had a neck injury with some right-sided weakness and after discussion of treatment options with the patient having almost continuously draining stools, decision was made to proceed with a total abdominal colectomy, removing the megacolon and then proceeding with an end ileostomy. Potential risks of procedure including bleeding, infection, injury on viscera as well as possibility of cardiopulmonary, septic, or hemorrhagic complications leading to were discussed, and the patient wishes to proceed. DETAILS OF PROCEDURE: The patient was taken to the operating room and placed in a supine position. After general endotracheal anesthesia was induced, a Nick catheter was inserted and then prepped and draped. The site for the ileostomy was then marked on the right mid abdominal wall. Preoperatively, this area appeared to be good both in a supine as well as sitting position. Nick catheter was inserted and the abdomen was prepped and draped and a nasogastric tube placed. A midline incision from just below the xiphoid just above the pubis was made and carried down through the full-thickness abdominal wall. As expected, the patient was noted to have a striking megacolon throughout the area of concern. The small bowel just proximal to the ileocecal valve was then divided with a LIZZIE stapler. The peritoneal flexion of the distal most small bowel, cecum, and ascending colon and hepatic flexure were then sequentially divided with combination of blunt dissection and electrocautery along with those sections to be mobilized medially. Care was taken to avoid injury to the underlying right ureter and duodenum. At this point, the rectum was then encircled at the junction of the upper and mid sections of the rectum and this was then divided with a curved LIZZIE purple load on the left side. Then, the peritoneal reflection of the sigmoid and descending colon were divided and these were then mobilized medially. The patient was noted to have an accessory spleen in the area of the splenic flexure mesentery which was felt to be quite high risk for bleeding if it were left in place, given the ongoing ventilation. This measured around 2 cm and was excised and sent for specimen. At this point, the omentum was divided away from the transverse colon. Mesentery for the entire length of the colon to be resected and divided with a combination of vascular mesenteric rufino and the total abdominal colectomy specimen then delivered from the field. At this point, the small bowel was brought up towards the area marked for the ileostomy. The mesentery at this point was noted to be foreshortened enough that it would not come up to the abdominal wall, given this was a roughly 6-inch segment of small bowel which was resected. This allowed adequate mobilization of the small bowel through a circular incision made on the abdominal wall. This was tunneled from a medial to lateral orientation through the rectus muscle which had been spread and the skin without difficulty. Good blood supply was confirmed at the ileostomy site. The ileostomy was then sutured from within with some 3- 0 Vicryl stitch and at that point, had been irrigated with an antibiotic-containing saline solution. Two Bradley-Menendez drains were placed, one on left and one on the right, taking the pericolic gutters and down into the pelvis. The patient was felt to be quite high risk for significant adhesion formation between the small bowel and pelvic and abdominal wall. Given this, Vicryl mesh was placed down in the depths of the pelvis posteriorly to the bladder along the pelvic sidewalls up against the abdominal wall. The midline fascia was then approximated with #2 Vicryl stitch. The skin and subcutaneous tissue were felt to be high risk for wound infection if a primary closure was undertaken. Given this, the wound was subsequently packed open with Iodoform gauze. Once that was in place the ileostomy was matured with a combination of interrupted and running 3-0 Vicryl stitch and at that point, the appliance was placed and the patient was taken to the recovery room in satisfactory condition. There were no complications. Boy Roberts MD /[id number]
--- NOTE | 2016-07-02 10:32 | DISCH ---
ADMISSION DIAGNOSES: 1. Diarrhea. 2. Cervical neck injury with spinal cord injury. 3. Hypertension. 4. Hyperlipidemia. DISCHARGE DIAGNOSES: 1. Subtotal colectomy with ileostomy for megacolon associated with fecal incontinence and small bowel resection on 06/26/2016. 2. Delayed primary closure of open abdominal incision on 06/28/2016. HISTORY: Yariel Hernandez is a 71-year-old male, who had diarrhea. He was admitted to the hospital, because he was disabled, so he could have adequate prep. Yariel was admitted on 06/24/2016. Yariel had his surgery subtotal colectomy with ileostomy under general anesthesia on 06/26/2016. He had no operative complications. He was n.p.o. with ice chips only and had a delayed primary closure on 06/28/2016. He did have bowel movement and on 06/30/2016, he was able to start a full liquid diet. He tolerated that well, was advanced on 07/01/2016 to a regular diet and vital signs have remained stable. Pain is well managed. Activity with assistance, he has been walking several times a day and he is able to be discharged to correction to assist with getting his strength back rehabilitation and new ileostomy care. OBJECTIVE: GENERAL: Yariel Hernandez is a 71-year-old male. He is alert and orientated, color pale. VITAL SIGNS: Height is 5 feet 6 inches, weight is 169 pounds. TPR is 95.9, 90, 18, blood pressure 98/54. HEENT: Negative. NECK: Supple. HEART: Regular rate and rhythm. LUNGS: Clear. ABDOMEN: Midline SOUMYA looks good, draining small amounts of pink serous drainage. Jorge A intact. Abdominal binder is on. Ileostomy site looks good. He has had a rash in his groin and had been using zinc oxide on that and it has been clearing. EXTREMITIES: Without peripheral edema. DISPOSITION: Discharged to home. CONDITION: Stable and improving. FOLLOWUP APPOINTMENT: With Chen Santos PA-C, on 07/10/2016 at 10:00 a.m. DISCHARGE MEDICATIONS: New prescriptions: [place] 5/325 mg 1 to 2 every 4 hours p.r.n. pain, fentanyl/Duragesic patch 12 mcg was replaced on day of discharge, 07/02/2016. He is to remove it on 07/06/2016. He is to resume his home medications of hydrochlorothiazide 12.5 mg oral daily, potassium chloride 10 mEq once oral daily, Crestor 10 mg oral at bedtime, and verapamil (Calan SR 240 mg oral daily), zinc oxide topical applied to affected area, prednisone 2.5 mg daily. DIET: Diet after discharge, usual diet as tolerated. Drink 8 to 10 glasses of water a day. ACTIVITY: No lifting greater than 10 pounds for 6 weeks. Other activity, walk 8 times a day with assistance. Shower bathing may shower keeping Unna boots dry and intact. Notify provider if any fever, increased pain, swelling, redness, drainage, nausea, or vomiting. Wound incision, keep site clean and dry. Wear abdominal binder for 6 weeks and then as tolerated. Strip, empty, and record SOUMYA drain 4 times a day 1/2 full. SPECIAL INSTRUCTIONS: 1. Use incentive spirometer 10 times every hour while awake. 2. Ileostomy care as directed. 3. Unna boot, leave it on 1 week then they will be changed at the clinic at next appointment.
== END 2016-07-02 13:04 | DRG 330 ==
LOC: UNDOADMOB 13:57 → JP.2SS 13:57 → INTOOBSV 06-25 15:51 → OBSVTOIN 06-25 15:51 → JP.2SS 06-26 09:51 → OBSVTOIN 06-26 09:51 → JP.2SS 06-26 14:20 → UNDODISIN 07-02 13:04
PROVIDERS: ADMIT Internal Medicine; ATTEND Surgery
PROC: 0DTE0ZZ Resection of Large Intestine, Open Approach (ICD-10-PCS; principal; 2016-06-26)
PROC: 0D1B0Z4 Bypass Ileum to Cutaneous, Open Approach (ICD-10-PCS; 2016-06-26)
PROC: 07TP0ZZ Resection of Spleen, Open Approach (ICD-10-PCS; 2016-06-26)
PROC: 0DB80ZX Excision of Small Intestine, Open Approach, Diagnostic (ICD-10-PCS; 2016-06-26)
PROC: 3E0M05Z Introduction of Adhesion Barrier into Peritoneal Cavity, Open Approach (ICD-10-PCS; 2016-06-26)
PROC: 2W1RX6Z Compression of Left Lower Leg using Pressure Dressing (ICD-10-PCS; 2016-06-26)
PROC: 2W1QX6Z Compression of Right Lower Leg using Pressure Dressing (ICD-10-PCS; 2016-06-26)
PROC: 0WQF0ZZ Repair Abdominal Wall, Open Approach (ICD-10-PCS; 2016-06-28)
DX: R19.7 Diarrhea, unspecified (principal); K59.39 Other megacolon; Q89.09 Congenital malformations of spleen; R15.9 Full incontinence of feces; I10 Essential (primary) hypertension; E78.5 Hyperlipidemia, unspecified; E87.6 Hypokalemia; M54.9 Dorsalgia, unspecified; G89.29 Other chronic pain; H54.7 Unspecified visual loss; Z79.52 Long term (current) use of systemic steroids; Z91.040 Latex allergy status; E83.42 Hypomagnesemia; I87.8 Other specified disorders of veins; Z86.73 Personal history of transient ischemic attack (TIA), and cerebral infarction without residual deficits; Y33.XXXS Other specified events, undetermined intent, sequela
CPT/HCPCS: 36415 ×2; 45378; 74020 ×2; 80053; 84153; 85025; 96365; 96366; 96375; A9270 ×7; G0378; J2250; J2704 ×2; J3010; J3480 ×3; 80048; 83735; 83880; 84100; 84132; 85027; 88305; 88309; 93005; 94762; 96361; 97165-GO; C1781; J0694; J1100; J1170; J2185; J2405; J2920; J2930; J3475; J3490; J7030; J7042; J7050

== ENCOUNTER 2017-01-08 10:05 | Emergency (ER) | payer MEDICARE, BC ==
[2017-01-08 10:25] VITALS: BP 130/63
--- NOTE | 2017-01-08 12:04 | EDM.PDOC ---
ED HPI GENERAL MEDICAL PROBLEM - General Chief Complaint: Lower Extremity Injury/Pain Stated Complaint: WANT LEGS CHECKED/WEAK Time Seen by Provider: 01/08/17 10:30 Source of Information: Reports: Patient, Family, Provider History Limitations: Reports: No Limitations - History of Present Illness INITIAL COMMENTS - FREE TEXT/NARRATIVE: 72-year-old male lives in an assisted alf situation has becoming more weak and having right lower leg discomfort. He has fallen twice in the last 2 days but not struggling with fever, nausea, or significant increase in weakness. He has focal tenderness in his right toe which is making it difficult for him to bear weight. He has some superficial abrasions on his knees in the lateral aspect of his right lower leg, they are also concerned he may have a urinary tract infection or other problem causing his weakness. Other than the toe pain the patient himself has no specific complaints. Severity: Moderate Associated Symptoms: Reports: Weakness. Denies: Fever/Chills, Headaches, Malaise, Shortness of Breath, Syncope Right Lower Leg Pain Score (Numeric/FACES): 6 - Related Data Allergies Allergy/AdvReac Type Severity Reaction Status Date / Time latex Allergy Rash Verified 01/08/17 10:14 Home Meds: Home Meds Zinc Oxide [Zinc Oxide 20% Oint] 1 gm TOP ASDIRECTED 06/22/16 [History] Matthew 1 tab PO QID 01/08/17 [History] Sertraline [Zoloft] 50 mg PO DAILY 01/08/17 [History] Past Medical History HEENT History: Reports: Cataract, Impaired Vision Cardiovascular History: Reports: Angina, High Cholesterol, Hypertension, SOB on Exertion Respiratory History: Reports: COPD Genitourinary History: Reports: Renal Calculus Musculoskeletal History: Reports: Back Pain, Chronic, Neck Pain, Chronic Other Neuro History: right side partial paralysis Psychiatric History: Reports: Anxiety, Depression Endocrine/Metabolic History: Reports: Diabetes, Type II Other Dermatologic History: yeast infection - Infectious Disease History Infectious Disease History: Reports: Chicken Pox, Measles, Mumps - Past Surgical History GI Surgical History: Reports: Hernia, Abdominal, Other (See Below) Other GI Surgeries/Procedures: colon surgery with illeostomy Other Neurological Surgeries/Procedures: partial severed c-spine - plate in place Musculoskeletal Surgical History: Reports: Knee Replacement Social & Family History - Tobacco Use Smoking Status *Q: Never Smoker Second Hand Smoke Exposure: No - Caffeine Use Caffeine Use: Reports: Coffee, Soda - Recreational Drug Use Recreational Drug Use: No Review of Systems - Review of Systems Review Of Systems: See Below Constitutional: Denies: Fever Respiratory: Denies: Shortness of Breath, Cough Cardiovascular: Denies: Chest Pain GI/Abdominal: Denies: Abdominal Pain Skin: Reports: Other (Some erythema on the knees and lateral aspect of the right lower leg) Neurological: Reports: Other (Spinal cord injury has caused chronic right sided weakness and contractions) Psychiatric: Reports: No Symptoms ED EXAM, GENERAL - Physical Exam Exam: See Below Exam Limited By: No Limitations General Appearance: Alert, No Apparent Distress Head: Atraumatic Neck: Supple Respiratory/Chest: No Respiratory Distress Cardiovascular: Regular Rate, Rhythm GI/Abdominal: Soft, Non-Tender, Other (Patient has an ostomy which is functioning normally) Extremities: Other (No point bony tenderness found. Full passive range of motion of both lower extremities, tender over the MP joint of the right large toe.) Neurological: Alert Skin Exam: Other (Slight erythema to the right lateral lower leg as well as both anterior knees.) Course - Vital Signs Last Recorded V/S: Last Vital Signs Temp 98.4 F 01/08/17 10:29 Pulse 89 01/08/17 10:29 Resp 16 01/08/17 10:29 BP 130/63 01/08/17 10:29 Pulse Ox 95 01/08/17 10:29 - Orders/Labs/Meds Labs: Laboratory Tests 01/08/17 01/08/17 01/08/17 Range/Units 10:58 10:58 11:57 WBC 10.1 (4.5-11.0) K/uL RBC 5.79 (4.30-5.90) M/uL Hgb 15.5 H D (12.0-15.0) g/dL Hct 47.5 (40.0-54.0) % MCV 82 (80-98) fL MCH 27 (27-31) pg MCHC 33 (32-36) % Plt Count 326 (150-400) K/uL Neut % (Auto) 70 H (36-66) % Lymph % (Auto) 14 L (24-44) % [place] % (Auto) 13 H (2-6) % Eos % (Auto) 2 (2-4) % Baso % (Auto) 1 (0-1) % Sodium 137 L (140-148) mmol/L Potassium 4.4 (3.6-5.2) mmol/L Chloride 105 (100-108) mmol/L Carbon Dioxide 24 (21-32) mmol/L Anion Gap 12.4 (5.0-14.0) mmol/L BUN 14 (7-18) mg/dL Creatinine 0.8 (0.8-1.3) mg/dL Est Cr Clr Drug Dosing 76.70 mL/min Estimated GFR (MDRD) > 60 (>60) Glucose 104 (74-106) mg/dL Calcium 8.6 (8.5-10.1) mg/dL Urine Color Yellow Urine Appearance Clear Urine pH 6.0 (4.5-8.0) Ur Specific Upper Tract 1.030 (1.008-1.030) Urine Protein Negative (NEGATIVE) mg/dL Urine Glucose (UA) Normal (NEGATIVE) mg/dL Urine Ketones Negative (NEGATIVE) mg/dL Urine Occult Blood Negative (NEGATIVE) Urine Nitrite Negative (NEGAITVE) Urine Bilirubin Negative (NEGATIVE) Urine Urobilinogen Normal (NORMAL) mg/dL Ur Leukocyte Esterase Small (NEGATIVE) Urine RBC 0-5 (0-5) Urine WBC 10-20 H (0-5) Ur Epithelial Cells Not seen Amorphous Sediment Rare Urine Bacteria Not seen Urine Mucus Not seen - Re-Assessments/Exams Free Text/Narrative Re-Assessment/Exam: 01/08/17 12:11 UA had 10-20 WBCs, no blood no bacteria and nitrate negative. CBC was normal, CMP was normal as well. He had some fairly significant advanced arthritis in the MP joint of the large toe by x-ray but no other acute bony findings, no fractures. Discussed with the patient and his family and that there are no treatable conditions at this time, he can return anytime if worsening or concerns. Departure - Departure Time of Disposition: 12:23 Disposition: DC/Tfer to [facility] Condition: Fair Clinical Impression: Abrasion of knee, bilateral, Weakness, Multiple falls - Discharge Information Instructions: Abrasion, [id number] Referrals: Juarez Wall Sr, MD [Primary Care Provider] - Forms: ED Department Discharge Care Plan Goals: Continue current medications and activity as tolerated. Return if worsening such as fever, increased redness of the leg or increased pain.
--- NOTE | 2017-01-08 13:24 | CR ---
Right foot. Findings: Forefoot deformity with multiple hammertoes. As limits details. Arthritic change IP joints. No definitive fracture.
--- NOTE | 2017-01-08 13:25 | CR ---
No evidence for fracture.
== END 2017-01-08 12:23 ==
LOC: JP.ED 10:05
DX: S80.211A Abrasion, right knee, initial encounter (principal); S80.212A Abrasion, left knee, initial encounter; R29.898 Other symptoms and signs involving the musculoskeletal system; E78.00 Pure hypercholesterolemia, unspecified; E11.9 Type 2 diabetes mellitus without complications; F32.9 Major depressive disorder, single episode, unspecified; F41.9 Anxiety disorder, unspecified; I10 Essential (primary) hypertension; J44.9 Chronic obstructive pulmonary disease, unspecified; Z87.442 Personal history of urinary calculi; Z96.659 Presence of unspecified artificial knee joint; Z91.040 Latex allergy status; Z79.899 Other long term (current) drug therapy; W19.XXXA Unspecified fall, initial encounter
CPT/HCPCS: 36415; 73590-26-RT; 73590-RT; 73630-26-RT; 73630-RT; 80048; 81001; 85025; 99283; 99285

== ENCOUNTER 2018-06-10 07:32 | Day surgery (SDC) | payer MEDICARE, BC ==
[2018-06-10] MEDS ORDERED: Propofol 200 MG/20 ML SDV ONE ×2 (07:40→11:02)
[2018-06-10] MEDS ORDERED: Dextrose 5%-Lactated Ringers 1,000 ML IV SCH (08:15)
[2018-06-10 12:20] VITALS: BP 130/88
--- NOTE | 2018-06-10 13:07 | CRLUS ---
INDICATION: Evaluate CT finding. TECHNIQUE: Renal bladder ultrasound. COMPARISON: CT abdomen pelvis 06/08/2018. Findings: Right kidney measures 9.3 cm. Left kidney measures 9.6 cm. Renal cortices are maintained. There is no hydronephrosis. Poor visualization of the left inferior kidney. There is a hypoechoic mass measuring 2.2 x 2 x 2.2 cm which would correspond to the a CT findings. Urinary bladder is nonvisualized. IMPRESSION: 1. Poor visualization of the left inferior kidney. There is a 2.2 x 2 x 2.2 cm hypoechoic lesion in the left inferior kidney corresponding to the mass seen on the CT scan. CT findings are suspicious for renal cell carcinoma. Urology consultation would be recommended. Dictated by Swati Miles MD @ Jun 10 2018 1:00PM Signed by Dr. Swati Miles @ Jun 10 2018 1:05PM
--- NOTE | 2018-06-14 13:03 | OR ---
DATE OF PROCEDURE: 06/10/2018 PREOPERATIVE DIAGNOSIS: Rule out enterorectal fistula. POSTOPERATIVE DIAGNOSIS: No enterorectal fistula identified. PROCEDURE: Flexible sigmoidoscopy. ANESTHESIA: IV sedation. INDICATION FOR PROCEDURE: A 73-year-old status post previous diverting ileostomy along with a subtotal colectomy and stapling off the rectal stump. There is some record of some potential stool appearing in the rectal area, and a CT scan was obtained earlier which did not confirm that, but the radiologist was adjudging somewhat in terms of this being a definitive study. Given this, the patient to undergo a flexible sigmoidoscopy to try to confirm whether or not there is a fistula present. Potential risks including bleeding and perforation were discussed and the patient wishes to proceed. DETAILS OF PROCEDURE: The patient was taken to the operating room and placed in a left lateral decubitus position. IV sedation was administered after which the initial digital rectal exam was performed and was unremarkable. The colonoscope was then passed into the rectum. The entire rectum including the staple line closure site was well visualized. There was some slightly brown-stained mucoid material present, but no evidence of any fistula. The scope was withdrawn and the procedure then concluded. The patient also received ultrasound of the left kidney earlier today. The findings of the ultrasound and recent CT scan will be reviewed with the radiologist. This appeared to be most likely a renal cell carcinoma found incidentally on the recent CT scan, and this was confirmed by review of the radiologic findings. We will discuss this situation with Medical Oncology to determine whether or not this patient with otherwise metastatic prostate cancer should have this area resected. Boy Roberts MD /[id number]
== END 2018-06-10 13:35 ==
LOC: JP.SDS 07:32 → EDSTATUS 08:00 → JP.SDS 13:35
PROVIDERS: ATTEND Surgery
DX: Z09 Encounter for follow-up examination after completed treatment for conditions other than malignant neoplasm (principal); N28.89 Other specified disorders of kidney and ureter; I10 Essential (primary) hypertension; E11.9 Type 2 diabetes mellitus without complications; J44.9 Chronic obstructive pulmonary disease, unspecified; Z91.040 Latex allergy status
CPT/HCPCS: 45330; 76770; J2704

== ENCOUNTER 2018-06-20 08:45 | Inpatient (IN) | payer MEDICARE, BC ==
[2018-06-20] MEDS ORDERED: Ropivacaine 38 ML, Dexamethasone 8 MG, EPINEPHrine 0.4 MG, Sodium Chloride 0.9% 39.6 ML NERVRT SCH ×4 (09:00)
[2018-06-20] MEDS ORDERED: Dextrose 5%-Lactated Ringers 1,000 ML IV SCH (09:45)
[2018-06-20] MEDS ORDERED: Acetaminophen 500 MG Tab PO ONE (09:45)
[2018-06-20] MEDS ORDERED: Meropenem 500 MG SDV ONE (10:25)
[2018-06-20] MEDS ORDERED: Glycopyrrolate 0.2 MG/ML 5 ML MDV ONE (10:34)
[2018-06-20] MEDS ORDERED: Dexamethasone 4 MG/ML SDV ONE (10:34)
[2018-06-20] MEDS ORDERED: Succinylcholine 200 MG/10 ML MDV ONE (10:34)
[2018-06-20] MEDS ORDERED: Rocuronium 50 MG/5 ML Vial ONE (10:34)
[2018-06-20] MEDS ORDERED: fentaNYL 250 MCG/5 ML SDV ONE (10:34)
[2018-06-20] MEDS ORDERED: Propofol 200 MG/20 ML SDV ONE (10:34)
[2018-06-20] MEDS ORDERED: Neostigmine Methylsulfate 1 MG/ML 5 ML Syringe ONE (10:34)
[2018-06-20] MEDS ORDERED: Ondansetron 4 MG/2 ML SDV ONE (10:34)
[2018-06-20] MEDS ORDERED: Naloxone 0.4 MG/ML SDV IVPUSH PRN (10:54)
[2018-06-20] MEDS ORDERED: fentaNYL 2,500 MCG in Sodium Chloride 0.9% 200 ML EPIDUR SCH (11:15)
[2018-06-20] MEDS ORDERED: fentaNYL 100 MCG/2 ML SDV ONE (11:19)
[2018-06-20] MEDS ORDERED: Sodium Chloride 0.9% 10 ML ONE ×2 (11:19→12:52)
[2018-06-20] MEDS: cefOXitin 2 GM in Sodium Chloride 0.9% 50 ML IV ONE ×2 (12:35→16:07)
[2018-06-20] MEDS ORDERED: ePHEDrine 50 MG/ML SDV ONE (12:52)
[2018-06-20] MEDS ORDERED: Phenylephrine 1% 10 MG/ML SDV ONE (13:07)
[2018-06-20] MEDS ORDERED: Lactated Ringers 1,000 ML ONE (13:10)
[2018-06-20] MEDS ORDERED: Insulin Lispro 100 Unit/ML 3 ML KwikPen SUBCUT ONE (14:08)
[2018-06-20] MEDS ORDERED: Glucagon,Human Recombinant 1 MG Vial IM PRN (15:48)
[2018-06-20] MEDS ORDERED: 50% Dextrose in Water 50 ML Syringe IVPUSH PRN (15:48)
[2018-06-20] MEDS ORDERED: Glucose Gel 15 GM in 37.5 GM Tube PO PRN (15:48)
[2018-06-20] MEDS ORDERED: Benzonatate 100 MG Cap PO PRN (15:50)
[2018-06-20] MEDS ORDERED: Acetaminophen 1,000 MG in Premix Bag 1 BAG IV ONE (16:00)
[2018-06-20] MEDS ORDERED: diphenhydrAMINE 50 MG/ML SDV IVPUSH PRN ×2 (16:03→16:06)
[2018-06-20] MEDS ORDERED: Naloxone 0.4 MG/ML SDV IV PRN (16:03)
[2018-06-20] MEDS: Dextrose 5%-Lactated Ringers 1,000 ML IV SCH ×2 (16:08→22:55)
[2018-06-20] MEDS: Insulin Lispro 100 Unit/ML 3 ML KwikPen SUBCUT PRN ×2 (17:40→22:46)
[2018-06-20] MEDS: Pantoprazole 40 MG Vial IV SCH (17:41)
[2018-06-20] MEDS: ceFAZolin 2 GM in Premix Bag 1 BAG IV SCH (17:42)
[2018-06-20] MEDS ORDERED: hydrOXYzine HCl 100 MG/2 ML SDV IM PRN (18:24)
[2018-06-20] MEDS: Divalproex Sodium Delayed-Release 250 MG Tab.CR PO SCH (22:46)
[2018-06-21] MEDS: ceFAZolin 2 GM in Premix Bag 1 BAG IV SCH (02:26)
[2018-06-21] MEDS: Ondansetron 4 MG/2 ML SDV IVPUSH PRN ×2 (04:00→21:04)
[2018-06-21] MEDS: Insulin Lispro 100 Unit/ML 3 ML KwikPen SUBCUT PRN ×4 (06:25→23:46)
--- NOTE | 2018-06-21 07:38 | PCM.SURGPN ---
- General Info Date of Service: 06/21/18 Date of Surgery/Procedure: 06/20/18 POD#: 1 Post-Op Diagnosis: Left renal mass Admission Diagnosis/Problem: Renal mass Functional Status: Reports: Tolerating Diet (Continue sips of clear liquid.), Incentive Spirometry (10 times per hour while awake.) - Review of Systems Systems Review Comment:: Yariel Hernandez is a 73-year-old male who is post op exploratory laparotomy with left nephrectomy. The patient remained afebrile with stable vital signs. The patient's pain was poorly controlled so anesthesia will be consulted to restart epidural. The patient will also be given a tap block tomorrow during the delayed primary closure to help with pain control. The patient was nauseous and gagging, but this was controlled with Zofran. Otherwise, the patient is tolerating sips of clear liquids, output is satisfactory with the Nick catheter. - Patient Data Vitals - Most Recent: Last Vital Signs Temp 35.7 C 06/21/18 07:29 Pulse 100 06/21/18 07:29 Resp 16 06/21/18 07:29 BP 144/71 H 06/21/18 07:29 Pulse Ox 94 L 06/21/18 07:30 Weight - Most Recent: 74.571 kg I&O - Last 24 Hours: Intake & Output 06/20/18 06/21/18 06/21/18 22:59 06:59 14:59 Intake Total 463 1849 Output Total 315 620 Balance 148 1229 Lab Results Last 24 Hrs: Laboratory Results - last 24 hr 06/20/18 06/21/18 06/21/18 Range/Units 09:30 04:00 04:00 WBC 15.2 H (4.5-11.0) K/uL RBC 4.28 L (4.30-5.90) M/uL Hgb 11.6 L (12.0-15.0) g/dL Hct 37.5 L (40.0-54.0) % MCV 88 (80-98) fL MCH 27 (27-31) pg MCHC 31 L (32-36) % Plt Count 373 (150-400) K/uL Neut % (Auto) 90 H (36-66) % Lymph % (Auto) 5 L (24-44) % [place] % (Auto) 5 (2-6) % Eos % (Auto) 0 L (2-4) % Baso % (Auto) 0 (0-1) % Sodium 139 L (140-148) mmol/L Potassium 4.6 (3.6-5.2) mmol/L Chloride 104 (100-108) mmol/L Carbon Dioxide 22 (21-32) mmol/L Anion Gap 17.6 H (5.0-14.0) mmol/L BUN 15 (7-18) mg/dL Creatinine 1.0 (0.8-1.3) mg/dL Est Cr Clr Drug Dosing 60.59 mL/min Estimated GFR (MDRD) > 60 (>60) Glucose 169 H (74-106) mg/dL Calcium 7.9 L (8.5-10.1) mg/dL Phosphorus 3.2 (2.5-4.9) mg/dL Magnesium 1.9 D (1.8-2.4) mg/dL Total Bilirubin 0.2 (0.2-1.0) mg/dL AST 27 D (15-37) U/L ALT 17 (12-78) U/L Alkaline Phosphatase 597 H (46-116) U/L Total Protein 6.9 (6.4-8.2) g/dL Albumin 2.4 L (3.4-5.0) g/dL Globulin 4.5 H (2.3-3.5) g/dL Albumin/Globulin Ratio 0.5 L (1.2-2.2) Blood Type O POSITIVE Gel Antibody Screen Negative Med Orders - Current: Current Medications Benzonatate (Tessalon Perles) 100 mg PO Q4H PRN PRN Reason: COUGH Ropivacaine 38 ml/Dexamethasone 8 mg/Epinephrine HCl 0.4 mg/ Sodium Chloride 39.6 ml 0 ml NERVRT ASDIRECTED RUBIA Dextrose (Glutose 15) 15 gm PO ASDIRECTED PRN PRN Reason: HYPOGLYCEMIA Dextrose/Water (Dextrose 50% In Water) 50 ml IVPUSH ASDIRECTED PRN PRN Reason: HYPOGLYCEMIA Diphenhydramine HCl (Benadryl) 25 - 50 mg IVPUSH Q6H PRN PRN Reason: ITCHING Divalproex Sodium (Divalproex Sodium) 250 mg PO BID [facility] Last Admin: 06/20/18 22:46 Dose: 250 mg Glucagon (Glucagen) 1 mg IM ASDIRECTED PRN PRN Reason: HYPOGLYCEMIA Hydroxyzine HCl (Vistaril) 50 - 75 mg IM Q6H PRN PRN Reason: Pain (moderate 4-6) Last Admin: 06/20/18 20:57 Dose: 75 mg Fentanyl 2,500 mcg/ Sodium (Chloride) 250 mls @ 0 mls/hr EPIDUR TITRATE [facility]; Protocol Last Admin: 06/20/18 15:00 Dose: 12 mls/hr, 12 mls/hr Dextrose/Lactated Ringer's (Dextrose 5%-Lactated Ringers) 1,000 mls @ 100 mls/ hr IV ASDIRECTED [facility] Insulin Human Lispro (Humalog) 0 unit SUBCUT Q6H PRN; Protocol PRN Reason: MEDIUM CORRECTIONAL DOSING Last Admin: 06/21/18 06:25 Dose: 2 units Naloxone HCl (Narcan) 0.1 mg IVPUSH Q5M PRN PRN Reason: RESP RATE LESS THAN 6/MINUTE Naloxone HCl (Narcan) 0.4 mg IV ASDIRECTED PRN PRN Reason: ITCHING Non-Formulary Medication (Tap Block, Pharmacy To Dose) 0 ml NERVRT ONETIME ONE Stop: 06/22/18 07:16 Ondansetron HCl (Zofran) 4 mg IVPUSH Q4H PRN PRN Reason: Nausea Last Admin: 06/21/18 04:00 Dose: 4 mg Pantoprazole Sodium (Protonix Iv) 40 mg IV Q24H [facility] Last Admin: 06/20/18 17:41 Dose: 40 mg Discontinued Medications Acetaminophen (Tylenol Extra Strength) 1,000 mg PO ONETIME ONE Stop: 06/20/18 09:46 Last Admin: 06/20/18 10:16 Dose: 1,000 mg Ropivacaine 38 ml/Dexamethasone 8 mg/Epinephrine HCl 0.4 mg/ Sodium Chloride 39.6 ml 0 ml NERVRT ASDIRECTED [facility] Last Admin: 06/20/18 13:04 Dose: 80 syringe Dexamethasone (Dexamethasone) Confirm Administered Dose 4 mg .ROUTE .STK-MED ONE Stop: 06/20/18 10:35 Diphenhydramine HCl (Benadryl) 25 mg IVPUSH Q6H PRN PRN Reason: ITCHING Ephedrine Sulfate (Ephedrine Sulfate) Confirm Administered Dose 50 mg .ROUTE .STK-[facility] ONE Stop: 06/20/18 12:53 Fentanyl (Sublimaze) Confirm Administered Dose 250 mcg .ROUTE .[facility] ONE Stop: 06/20/18 10:35 Fentanyl (Sublimaze) Confirm Administered Dose 100 mcg .ROUTE .[facility] ONE Stop: 06/20/18 11:20 Glycopyrrolate (Robinul) Confirm Administered Dose 1 mg .ROUTE .[facility] ONE Stop: 06/20/18 10:35 Cefoxitin Sodium 2 gm/ Sodium (Chloride) 50 mls @ 100 mls/hr IV ONETIME ONE Stop: 06/20/18 10:14 Last Admin: 06/20/18 16:07 Dose: Not Given Dextrose/Lactated Ringer's (Dextrose 5%-Lactated Ringers) 1,000 mls @ 100 mls/ hr IV [facility] Last Admin: 06/20/18 09:59 Dose: 100 mls/hr Sodium Chloride (Normal Saline) Confirm Administered Dose 10 mls @ as directed .ROUTE .[facility] ONE Stop: 06/20/18 11:20 Sodium Chloride (Normal Saline) Confirm Administered Dose 10 mls @ as directed .ROUTE .[facility] ONE Stop: 06/20/18 12:53 Lactated Ringer's (Ringers, Lactated) Confirm Administered Dose 1,000 mls @ as directed .ROUTE .[facility] ONE Stop: 06/20/18 13:11 Dextrose/Lactated Ringer's (Dextrose 5%-Lactated Ringers) 1,000 mls @ 150 [facility]ls[facility] Admin: 06/20/18 22:55 Dose: 150 mls/hr Acetaminophen 1,000 mg/ Premix 100 mls @ 400 mls/hr IV ONETIME ONE Stop: 06/20/18 16:14 Last Admin: 06/20/18 16:02 Dose: 400 mls/hr Cefazolin Sodium/Dextrose 2 gm (/ Premix) 50 mls @ 100 mls/hr IV Q8H [facility] Stop: 06/21/18 02:59 Last Admin: 06/21/18 02:26 Dose: 100 mls/hr Insulin Human Lispro (Humalog) 2 unit SUBCUT ONETIME ONE Stop: 06/20/18 14:09 Last Admin: 06/20/18 14:16 Dose: 2 units Meropenem (Merrem) Confirm Administered Dose 500 mg .ROUTE .STK-MED ONE Stop: 06/20/18 10:26 Last Admin: 06/20/18 13:19 Dose: 500 mg Neostigmine Methylsulfate (Neostigmine) Confirm Administered Dose 5 mg .ROUTE .STK-MED ONE Stop: 06/20/18 10:35 Ondansetron HCl (Zofran) Confirm Administered Dose 4 mg .ROUTE .STK-MED ONE Stop: 06/20/18 10:35 Phenylephrine HCl (Jacinto-Synephrine) Confirm Administered Dose 10 mg .ROUTE .STK- MED ONE Stop: 06/20/18 13:08 Propofol (Diprivan 20 Ml) Confirm Administered Dose 200 mg .ROUTE .STK-MED ONE Stop: 06/20/18 10:35 Rocuronium [place] (Zemuron) Confirm Administered Dose 50 mg .ROUTE .STK-MED ONE Stop: 06/20/18 10:35 Succinylcholine Chloride (Quelicin) Confirm Administered Dose 200 mg .ROUTE .STK -MED ONE Stop: 06/20/18 10:35 - Exam Quality Assessment: Supplemental Oxygen (2 L via NC.), Urine Catheter (Output from Nick catheter is 725 mL.), DVT Prophylaxis (SCDs in place.), Skin Breakdown (Irritation in the lower abdominal fold. This area of the skin is red in appearance but without any open lesions.) General: Alert, Oriented Neck: Supple Lungs: Clear to Auscultation, Normal Respiratory Effort Cardiovascular: Regular Rate, Regular Rhythm Extremities: No Pedal Edema Skin: Warm, Dry Neurological: No New Focal Deficit Psy/Mental Status: Normal Affect, Normal Mood Physical Findings Comment:: I & O: Nick catheter: 725 mL SOUMYA drain: 155 mL Intake: 500 mL Emesis: 100 mL - Problem List Review Problem List Initiated/Reviewed/Updated: Yes - My Orders Last 24 Hours: Active Orders 24 hr Category Date Time Status Admission Status [Patient Status] [ADT] Routine ADT 06/20/18 13:50 Active Ambulate [RC] ASDIRECTED Care 06/20/18 16:22 Active Communication Order [RC] ASDIRECTED Care 06/20/18 16:19 Active Drain Management [RC] Q12H Care 06/20/18 16:19 Active Head of Bed Elevation [RC] CONTINUOUS Care 06/20/18 16:22 Active Insert Urinary Catheter [OM.PC] Q24H Care 06/20/18 16:30 Ordered Intake and Output [RC] ASDIRECTED Care 06/20/18 16:19 Active Ostomy Assessment [RC] Q12H Care 06/20/18 16:19 Active Overnight Pulse Oximetry [RC] Click to Edit Care 06/20/18 16:17 Active POC Glucose [Blood Glucose Check, Bedside] [RC] Q6HR Care 06/20/18 16:00 Active Pneumonia Education [RC] UPON Care 06/20/18 16:22 Active RT Incentive Spirometry [RC] Q1HWA Care 06/20/18 16:22 Active Turn, Cough, Deep Breathe [RC] Q1HWA Care 06/20/18 16:22 Active Up to Chair [RC] TIDMEALS Care 06/20/18 16:22 Active Urinary Catheter Assessment [RC] Q12H Care 06/20/18 16:20 Active Verify Patient Consent Obtain [RC] ASDIRECTED Care 06/21/18 07:11 Active Respiratory Care Assess and Treatment [CONS] Routine Cons 06/20/18 16:22 Active Nothing Per Oral Diet [DIET] Diet 06/20/18 Dinner Active CBC W/O DIFF,HEMOGRAM [HEME] Timed Lab 06/22/18 04:00 Ordered COMPREHENSIVE METABOLIC PN,CMP [CHEM] Timed Lab 06/22/18 04:00 Ordered GLUCOSE POC LAB TO COLLECT [POC] Q6H Lab 06/21/18 10:00 Ordered GLUCOSE POC LAB TO COLLECT [POC] Q6H Lab 06/21/18 16:00 Ordered GLUCOSE POC LAB TO COLLECT [POC] Q6H Lab 06/21/18 22:00 Ordered MAGNESIUM [CHEM] Timed Lab 06/22/18 04:00 Ordered PHOSPHORUS [CHEM] Timed Lab 06/22/18 04:00 Ordered PRO B-TYPE NATRIUR PEPT,BNPPRO [CHEM] Timed Lab 06/22/18 04:00 Ordered Benzonatate [Tessalon Perles] Med 06/20/18 15:50 Active 100 mg PO Q4H PRN Dextrose 5%-Lactated Ringers 1,000 ml Med 06/21/18 16:00 Active IV ASDIRECTED Dextrose 50% in Water Med 06/20/18 15:48 Active 50 ml IVPUSH ASDIRECTED PRN Dextrose [Glutose 15] Med 06/20/18 15:48 Active 15 gm PO ASDIRECTED PRN Divalproex Sodium Med 06/20/18 21:00 Active 250 mg PO BID Glucagon,Human Recombinant [GlucaGen] Med 06/20/18 15:48 Active 1 mg IM ASDIRECTED PRN Insulin Lispro [HumaLOG] Med 06/20/18 15:49 Active 0 unit SUBCUT Q6H PRN Naloxone [Narcan] Med 06/20/18 10:54 Active 0.1 mg IVPUSH Q5M PRN Naloxone [Narcan] Med 06/20/18 16:03 Active 0.4 mg IV ASDIRECTED PRN Ondansetron [Zofran] Med 06/20/18 15:47 Active 4 mg IVPUSH Q4H PRN Pantoprazole [ProTONIX IV] Med 06/20/18 17:30 Active 40 mg IV Q24H Ropivacaine [Naropin 0.5%] 38 ml Med 06/22/18 07:15 Active Dexamethasone 8 mg EPINEPHrine [Adrenalin] 0.4 mg Sodium Chloride 0.9% [Normal Saline] 39.6 ml NERVRT ASDIRECTED Tap Block [Tap Block, Pharmacy to Dose] Med 06/22/18 07:15 Once See Dose Instructions NERVRT ONETIME ONE diphenhydrAMINE [Benadryl] Med 06/20/18 16:06 Active 25 - 50 mg IVPUSH Q6H PRN fentaNYL [Sublimaze] 2,500 mcg Med 06/20/18 11:15 Active Sodium Chloride 0.9% [Normal Saline] 200 ml EPIDUR TITRATE hydrOXYzine HCl [Vistaril] Med 06/20/18 18:24 Active 50 - 75 mg IM Q6H PRN Abdominal Binder [OM.PC] Routine Ot 06/20/18 16:15 Ordered Oral Care [OM.PC] BID Oth 06/20/18 16:30 Ordered Oral Care [OM.PC] BID Oth 06/21/18 16:30 Ordered Pulse Oximetry Continuous Monitoring [OM.PC] Routine Ot 06/20/18 16:15 Ordered SCD [Sequential Compression Device] [OM.PC] Routine Oth 06/20/18 09:45 Ordered Sequential Compression Device [OM.PC] Routine Oth 06/20/18 16:15 Ordered Medication Orders Benzonatate (Tessalon Perles) 100 mg PO Q4H PRN PRN Reason: COUGH Ropivacaine 38 ml/Dexamethasone 8 mg/Epinephrine HCl 0.4 mg/ Sodium Chloride 39.6 ml 0 ml NERVRT ASDIRECTED RUBIA Dextrose (Glutose 15) 15 gm PO ASDIRECTED PRN PRN Reason: HYPOGLYCEMIA Dextrose/Water (Dextrose 50% In Water) 50 ml IVPUSH ASDIRECTED PRN PRN Reason: HYPOGLYCEMIA Diphenhydramine HCl (Benadryl) 25 - 50 mg IVPUSH Q6H PRN PRN Reason: ITCHING Divalproex Sodium (Divalproex Sodium) 250 mg PO BID [facility] Last Admin: 06/20/18 22:46 Dose: 250 mg Glucagon (Glucagen) 1 mg IM ASDIRECTED PRN PRN Reason: HYPOGLYCEMIA Hydroxyzine HCl (Vistaril) 50 - 75 mg IM Q6H PRN PRN Reason: Pain (moderate 4-6) Last Admin: 06/20/18 20:57 Dose: 75 mg Fentanyl 2,500 mcg/ Sodium (Chloride) 250 mls @ 0 mls/hr EPIDUR TITRATE [facility]; Protocol Last Admin: 06/20/18 15:00 Dose: 12 mls/hr, 12 mls/hr Dextrose/Lactated Ringer's (Dextrose 5%-Lactated Ringers) 1,000 mls @ 100 mls/ hr IV ASDIRECTED [facility] Insulin Human Lispro (Humalog) 0 unit SUBCUT Q6H PRN; Protocol PRN Reason: MEDIUM CORRECTIONAL DOSING Last Admin: 06/21/18 06:25 Dose: 2 units Admin: 06/20/18 22:46 Dose: 2 units Admin: 06/20/18 17:40 Dose: 2 units Naloxone HCl (Narcan) 0.1 mg IVPUSH Q5M PRN PRN Reason: RESP RATE LESS THAN 6/MINUTE Naloxone HCl (Narcan) 0.4 mg IV ASDIRECTED PRN PRN Reason: ITCHING Non-Formulary Medication (Tap Block, Pharmacy To Dose) 0 ml NERVRT ONETIME ONE Stop: 06/22/18 07:16 Ondansetron HCl (Zofran) 4 mg IVPUSH Q4H PRN PRN Reason: Nausea Last Admin: 06/21/18 04:00 Dose: 4 mg Pantoprazole Sodium (Protonix Iv) 40 mg IV Q24H RUBIA Last Admin: 06/20/18 17:41 Dose: 40 mg - Assessment Assessment (Free Text/Narrative):: Pre-Op Diagnosis: Left renal mass Post-Op Diagnosis: Left renal mass Procedure: Exploratory laparotomy with left nephrectomy. Date of Surgery: 06/20/18 Surgeon: Boy Roberts MD - Plan Plan (Free Text/Narrative):: 1. Continue sips of clear liquids today. 2. NPO at midnight for delayed primary closure on 06/22/18. 3. Continue IV at 150 until 1600, then decreased to 100. 4. Labs in the AM. 5. The patient commented on skin irritation in the lower abdominal fold. Staff will keep this area dry with dressing and powder.
[2018-06-21] MEDS ORDERED: Bupivacaine 0.75%/D5W 2 ML Amp ONE (08:05)
[2018-06-21] MEDS ORDERED: Morphine PF 150 MG/30 ML PCA Syringe IV PRN (08:34)
[2018-06-21] MEDS ORDERED: Naloxone 0.4 MG/ML SDV IV PRN (08:34)
[2018-06-21] MEDS: Nystatin Crm 15 GM Tube TOP SCH ×2 (08:38→20:01)
[2018-06-21] MEDS: Divalproex Sodium Delayed-Release 250 MG Tab.CR PO SCH ×2 (08:38→19:59)
--- NOTE | 2018-06-21 11:51 | OR ---
DATE OF PROCEDURE: 06/20/2018 PREOPERATIVE DIAGNOSIS: Left renal mass. POSTOPERATIVE DIAGNOSES: 1. Left renal mass. 2. Extensive intraabdominal adhesions. OPERATIVE PROCEDURES: Exploratory laparotomy with lysis of extensive adhesions and: 1. Left radical nephrectomy (13557). 2. Placement of Vicryl mesh to displace pelvic and abdominal wall from underlying viscera (33479). ANESTHESIA: General. ASSISTANTS: Cehn Santos PA-C; and SMITH Krishna. INDICATION FOR PROCEDURE: This is a 73-year-old who underwent some imaging, which identified an enlarging left renal mass, highly suspicious for a renal cell carcinoma. The plan is to proceed with an open left radical nephrectomy. We are opting to do this as an open approach so as to minimize the chances for postoperative complications and 2nd procedures and decrease renal ischemia times. Additionally, the mass more or less abuts the psoas muscle and digital exploration and dissection would likely be beneficial to avoid entering the plane of the tumor and if necessary excise some of the psoas muscle. His creatinine is 0.67 and the right kidney is somewhat larger, so we are unlikely to have a moderately low creatinine clearance after a total nephrectomy and given this, we will proceed in that direction. Potential risks of the procedure including bleeding, infection, injury to underlying viscera, possible local or distant recurrence of the tumor over time were reviewed, and the patient wishes to proceed. DETAILS OF PROCEDURE: The patient was taken to the operating room and placed in a supine position. After general endotracheal anesthesia was induced, a Nick catheter was inserted. The patient's ileostomy bag and abdomen were then prepped leaving the bag in place and following this, an upper midline incision was made from the umbilicus to the xiphoid process. This was carried down through the full-thickness abdominal wall. As one entered the abdomen, there was quite a bit in the way of small bowel adhesions to the anterior abdominal wall with the patient being status post previous subtotal colectomy and ileostomy. Upon entering the abdomen otherwise beyond the adhesion, no specific abnormalities were noted. At this point, the peritoneum lateral to the left kidney was divided and dissection began in the area lateral and then posterior to the kidney maintaining the layer of fatty or Gerota fascia over the surface of the kidney. This was then mobilized upward. There was a clean plane between the area of the tumor, which was located in the lower pole medially and the adjacent psoas muscle, i.e., there was no evident adherence to that area and with blunt dissection, I continued upward clearing it away from the area of the psoas muscle without any significant difficulty. Once again, it was mobilized upward. The ureter, renal vein, and renal artery were divided with LIZZIE rufino. The plane of dissection remained along the medial to the left side of the aorta, thus clearing the broad area of lymph nodes potentially located in that area. The plane between the adrenal gland and the kidney was then established and that tissue plane then divided leaving the adrenal gland in place given this was a lower pole tumor. This was all done with LIZZIE rufino and at that point, the kidney was delivered from the field. The area of dissection was inspected. No additional areas of concern were noted, specifically there were no enlarged nodes above or below the plane of dissection and at that point, the vascular staple lines were reinforced with some fibrin sealant and irrigated with meropenem-containing saline solution. A Bradley-Menendez drain was then placed through a stab wound in the left mid abdomen and placed across the bed of dissection. Following this, the midline fascia was then approximated with #2 Vicryl stitch. With the ileostomy appliance being immediately adjacent to the incision, it was felt to be somewhat high risk for a wound infection. Given this, the skin and subcutaneous tissue were packed open for a planned delayed primary closure to be undertaken in 48 hours. The patient was taken to the recovery room in satisfactory condition. There were no evident complications. Physician fast food assistant restaurant manager, Chen Santos, played an essential role in assisting in this case, helping to position the patient, retract structures as needed, as well as suturing and cutting sutures when indicated. Her presence improved patient safety and decreased the operative time. Boy Roberts MD /[id number]
[2018-06-21] MEDS: Pantoprazole 40 MG Vial IV SCH (16:48)
[2018-06-21] MEDS: Dextrose 5%-Lactated Ringers 1,000 ML IV SCH ×2 (16:58→19:56)
[2018-06-21] MEDS ORDERED: Lactated Ringers 500 ML IV ONE ×2 (21:15→23:45)
[2018-06-22] MEDS: Dextrose 5%-Lactated Ringers 1,000 ML IV SCH ×3 (05:34→22:28)
[2018-06-22] MEDS ORDERED: Lactated Ringers 500 ML IV ONE (06:37)
[2018-06-22] MEDS ORDERED: Meropenem 500 MG SDV ONE (06:53)
[2018-06-22] MEDS ORDERED: Lidocaine 1% with EPINEPHrine 1:100,000 50 ML MDV ONE (06:53)
[2018-06-22] MEDS ORDERED: Bupivacaine 0.5% 50 ML MDV ONE (06:53)
[2018-06-22] MEDS ORDERED: Propofol 200 MG/20 ML SDV ONE (07:15)
[2018-06-22] MEDS ORDERED: fentaNYL 100 MCG/2 ML SDV ONE (07:15)
[2018-06-22] MEDS ORDERED: Ropivacaine 38 ML, Dexamethasone 8 MG, EPINEPHrine 0.4 MG, Sodium Chloride 0.9% 39.6 ML NERVRT SCH ×4 (07:15)
[2018-06-22] MEDS ORDERED: Tap Block 1 ML BAG NERVRT ONE (07:15)
--- NOTE | 2018-06-22 07:55 | PCM.SURGPN ---
- General Info Date of Service: 06/22/18 Date of Surgery/Procedure: 06/20/18 POD#: 2 Post-Op Diagnosis: Left renal mass Functional Status: Reports: Tolerating Diet (ice chips and sips of clear liquid. ) - Review of Systems Systems Review Comment:: Yariel Hernandez is a 73-year-old male who is post op exploratory laparotomy with left nephrectomy. Patient will be having a delayed primary closure this morning and at that time a tap block will be done for increased pain control. When the patient tried sitting up in the chair, this caused discomfort. The patient remained afebrile with stable vital signs. The patient was nauseous, but this was controlled with Zofran. Otherwise, the patient is tolerating sips of clear liquids, output is satisfactory with the Nick catheter. - Patient Data Vitals - Most Recent: Last Vital Signs Temp 36.5 C 06/22/18 03:00 Pulse 97 06/22/18 03:00 Resp 18 06/22/18 03:00 BP 150/75 H 06/22/18 03:00 Pulse Ox 93 L 06/22/18 07:39 Weight - Most Recent: 74.571 kg I&O - Last 24 Hours: Intake & Output 06/21/18 06/22/18 06/22/18 22:59 06:59 14:59 Intake Total 2156 1739 Output Total 647 336 Balance 1509 1403 Lab Results Last 24 Hrs: Laboratory Results - last 24 hr 06/22/18 06/22/18 Range/Units 04:20 04:20 WBC 11.6 H (4.5-11.0) K/uL RBC 4.02 L (4.30-5.90) M/uL Hgb 10.6 L (12.0-15.0) g/dL Hct 35.8 L (40.0-54.0) % MCV 89 (80-98) fL MCH 26 L (27-31) pg MCHC 30 L (32-36) % Plt Count 339 (150-400) K/uL Sodium 138 L (140-148) mmol/L Potassium 4.1 (3.6-5.2) mmol/L Chloride 104 (100-108) mmol/L Carbon Dioxide 27 (21-32) mmol/L Anion Gap 11.1 (5.0-14.0) mmol/L BUN 14 (7-18) mg/dL Creatinine 0.8 (0.8-1.3) mg/dL Est Cr Clr Drug Dosing 75.74 mL/min Estimated GFR (MDRD) > 60 (>60) Glucose 108 H (74-106) mg/dL Calcium 7.3 L (8.5-10.1) mg/dL Phosphorus 3.1 (2.5-4.9) mg/dL Magnesium 1.8 (1.8-2.4) mg/dL Total Bilirubin 0.2 (0.2-1.0) mg/dL AST 27 (15-37) U/L ALT 17 (12-78) U/L Alkaline Phosphatase 459 H (46-116) U/L NT-Pro-B Natriuret Pep 643 H (5-125) pg/mL Total Protein 6.1 L (6.4-8.2) g/dL Albumin 2.2 L (3.4-5.0) g/dL Globulin 3.9 H (2.3-3.5) g/dL Albumin/Globulin Ratio 0.6 L (1.2-2.2) Med Orders - Current: Current Medications Benzonatate (Tessalon Perles) 100 mg PO Q4H PRN PRN Reason: COUGH Last Admin: 06/22/18 01:52 Dose: 100 mg Ropivacaine 38 ml/Dexamethasone 8 mg/Epinephrine HCl 0.4 mg/ Sodium Chloride 39.6 ml 0 ml NERVRT ASDIRECTED [facility] Dextrose (Glutose 15) 15 gm PO ASDIRECTED PRN PRN Reason: HYPOGLYCEMIA Dextrose/Water (Dextrose 50% In Water) 50 ml IVPUSH ASDIRECTED PRN PRN Reason: HYPOGLYCEMIA Diphenhydramine HCl (Benadryl) 25 - 50 mg IVPUSH Q6H PRN PRN Reason: ITCHING Divalproex Sodium (Divalproex Sodium) 250 mg PO BID [facility] Last Admin: 06/21/18 19:59 Dose: 250 mg Glucagon (Glucagen) 1 mg IM ASDIRECTED PRN PRN Reason: HYPOGLYCEMIA Hydroxyzine HCl (Vistaril) 50 - 75 mg IM Q6H PRN PRN Reason: Pain (moderate 4-6) Last Admin: 06/20/18 20:57 Dose: 75 mg Dextrose/Lactated Ringer's (Dextrose 5%-Lactated Ringers) 1,000 mls @ 100 mls/ hr IV ASDIRECTED [facility] Last Admin: 06/22/18 05:34 Dose: 100 mls/hr Insulin Human Lispro (Humalog) 0 unit SUBCUT Q6H PRN; Protocol PRN Reason: MEDIUM CORRECTIONAL DOSING Last Admin: 06/21/18 23:46 Dose: 1 units Morphine Sulfate (Morphine Director Insurance 150 Mg In 30 Ml) 0 mg IV ASDIRECTED PRN; Protocol PRN Reason: Pain Last Admin: 06/21/18 08:59 Dose: 150 mg Naloxone HCl (Narcan) 0.1 mg IV ASDIRECTED PRN PRN Reason: decreased respiratory rate Nystatin (Nystatin Crm) 0 gm TOP BID [facility] Last Admin: 06/21/18 20:01 Dose: 1 appful Ondansetron HCl (Zofran) 4 mg IVPUSH Q4H PRN PRN Reason: Nausea Last Admin: 06/21/18 21:04 Dose: 4 mg Pantoprazole Sodium (Protonix Iv) 40 mg IV Q24H [facility] Last Admin: 06/21/18 16:48 Dose: 40 mg Discontinued Medications Acetaminophen (Tylenol Extra Strength) 1,000 mg PO ONETIME ONE Stop: 06/20/18 09:46 Last Admin: 06/20/18 10:16 Dose: 1,000 mg Bupivacaine HCl (Marcaine 0.5%) Confirm Administered Dose 50 ml .ROUTE .STK-MED ONE Stop: 06/22/18 06:54 Bupivacaine HCl/Dextrose (Marcaine 0.75% Spinal) Confirm Administered Dose 2 ml .ROUTE .STK-MED ONE Stop: 06/21/18 08:06 Ropivacaine 38 ml/Dexamethasone 8 mg/Epinephrine HCl 0.4 mg/ Sodium Chloride 39.6 ml 0 ml NERVRT ASDIRECTED [facility] Last Admin: 06/20/18 13:04 Dose: 80 syringe Dexamethasone (Dexamethasone) Confirm Administered Dose 4 mg .ROUTE .STK-MED ONE Stop: 06/20/18 10:35 Diphenhydramine HCl (Benadryl) 25 mg IVPUSH Q6H PRN PRN Reason: ITCHING Ephedrine Sulfate (Ephedrine Sulfate) Confirm Administered Dose 50 mg .ROUTE .STK-MED ONE Stop: 06/20/18 12:53 Fentanyl (Sublimaze) Confirm Administered Dose 250 mcg .ROUTE .K-MED ONE Stop: 06/20/18 10:35 Fentanyl (Sublimaze) Confirm Administered Dose 100 mcg .ROUTE .[facility] [place]-MED ONE Stop: 06/20/18 11:20 Fentanyl (Sublimaze) Confirm Administered Dose 100 mcg .ROUTE .K-MED ONE Stop: 06/22/18 07:16 Glycopyrrolate (Robinul) Confirm Administered Dose 1 mg .ROUTE .[facility] [place]-MED ONE Stop: 06/20/18 10:35 Cefoxitin Sodium 2 gm/ Sodium (Chloride) 50 mls @ 100 mls/hr IV ONETIME ONE Stop: 06/20/18 10:14 Last Admin: 06/20/18 16:07 Dose: Not Given Dextrose/Lactated Ringer's (Dextrose 5%-Lactated Ringers) 1,000 mls @ 100 mls/ hr IV ASDIRECTED [facility] Last Admin: 06/20/18 09:59 Dose: 100 mls/hr Fentanyl 2,500 mcg/ Sodium (Chloride) 250 mls @ 0 mls/hr EPIDUR TITRATE RUBIA; Protocol Last Admin: 06/20/18 15:00 Dose: 12 mls/hr, 12 mls/hr Sodium Chloride (Normal Saline) Confirm Administered Dose 10 mls @ as directed .ROUTE .[facility] [place]-MED ONE Stop: 06/20/18 11:20 Sodium Chloride (Normal Saline) Confirm Administered Dose 10 mls @ as directed .ROUTE .[facility] [place]-MED ONE Stop: 06/20/18 12:53 Lactated Ringer's (Ringers, Lactated) Confirm Administered Dose 1,000 mls @ as directed .ROUTE .[facility] [place]-MED ONE Stop: 06/20/18 13:11 Dextrose/Lactated Ringer's (Dextrose 5%-Lactated Ringers) 1,000 mls @ 150 mls/ hr IV ASDIRECTED [facility] Last Admin: 06/20/18 22:55 Dose: 150 mls/hr Acetaminophen 1,000 mg/ Premix 100 mls @ 400 mls/hr IV ONETIME ONE Stop: 06/20/18 16:14 Last Admin: 06/20/18 16:02 Dose: 400 mls/hr Cefazolin Sodium/Dextrose 2 gm (/ Premix) 50 mls @ 100 mls/hr IV Q8H [facility] Stop: 06/21/18 02:59 Last Admin: 06/21/18 02:26 Dose: 100 mls/hr Lactated Ringer's (Ringers, Lactated) 500 mls @ 500 mls/hr IV ONETIME ONE Stop: 06/21/18 22:14 Last Admin: 06/21/18 21:37 Dose: 500 mls/hr Lactated Ringer's (Ringers, Lactated) 500 mls @ 500 mls/hr IV ONETIME ONE Stop: 06/22/18 00:44 Last Admin: 06/21/18 23:47 Dose: 500 mls/hr Lactated Ringer's (Ringers, Lactated) 500 mls @ 500 mls/hr IV BOLUS ONE Stop: 06/22/18 07:36 Last Admin: 06/22/18 06:51 Dose: 500 mls/hr Insulin Human Lispro (Humalog) 2 unit SUBCUT ONETIME ONE Stop: 06/20/18 14:09 Last Admin: 06/20/18 14:16 Dose: 2 units Lidocaine/Epinephrine (Xylocaine 1% With Epinephrine 1:100,000) Confirm Administered Dose 50 ml .ROUTE .STK-MED ONE Stop: 06/22/18 06:54 Meropenem (Merrem) Confirm Administered Dose 500 mg .ROUTE .STK-MED ONE Stop: 06/20/18 10:26 Last Admin: 06/20/18 13:19 Dose: 500 mg Meropenem (Merrem) Confirm Administered Dose 500 mg .ROUTE .STK-MED ONE Stop: 06/22/18 06:54 Naloxone HCl (Narcan) 0.1 mg IVPUSH Q5M PRN PRN Reason: RESP RATE LESS THAN 6/MINUTE Naloxone HCl (Narcan) 0.4 mg IV ASDIRECTED PRN PRN Reason: ITCHING Neostigmine Methylsulfate (Neostigmine) Confirm Administered Dose 5 mg .ROUTE .STK-MED ONE Stop: 06/20/18 10:35 Non-Formulary Medication (Tap Block, Pharmacy To Dose) 0 ml NERVRT ONETIME ONE Stop: 06/22/18 07:16 Ondansetron HCl (Zofran) Confirm Administered Dose 4 mg .ROUTE .STK-MED ONE Stop: 06/20/18 10:35 Phenylephrine HCl (Jacinto-Synephrine) Confirm Administered Dose 10 mg .ROUTE .ST- MED ONE Stop: 06/20/18 13:08 Propofol (Diprivan 20 Ml) Confirm Administered Dose 200 mg .ROUTE .[facility] [place]-MED ONE Stop: 06/20/18 10:35 Propofol (Diprivan 20 Ml) Confirm Administered Dose 200 mg .ROUTE .STK-MED ONE Stop: 06/22/18 07:16 Rocuronium [place] (Zemuron) Confirm Administered Dose 50 mg .ROUTE .[facility] [place]-MED ONE Stop: 06/20/18 10:35 Succinylcholine Chloride (Quelicin) Confirm Administered Dose 200 mg .ROUTE .[facility] [place] -MED ONE Stop: 06/20/18 10:35 - Exam General: Alert, Oriented Neck: Supple Lungs: Clear to Auscultation, Normal Respiratory Effort Cardiovascular: Regular Rate, Regular Rhythm Extremities: No Pedal Edema Neurological: No New Focal Deficit Psy/Mental Status: Normal Affect, Normal Mood Physical Findings Comment:: Urine output via Nick catheter 1378 mL SOUMYA drain 30 mL - Problem List Review Problem List Initiated/Reviewed/Updated: Yes - My Orders Last 24 Hours: Active Orders 24 hr Category Date Time Status Verify Patient Consent Obtain [RC] ASDIRECTED Care 06/21/18 07:11 Active GLUCOSE POC LAB TO COLLECT [POC] Q6H Lab 06/22/18 10:00 Ordered GLUCOSE POC LAB TO COLLECT [POC] Q6H Lab 06/22/18 16:00 Ordered GLUCOSE POC LAB TO COLLECT [POC] Q6H Lab 06/22/18 22:00 Ordered Dextrose 5%-Lactated Ringers 1,000 ml Med 06/21/18 16:00 Active IV ASDIRECTED Morphine PF [Morphine CHILD NUTRITION ASSISTANT 150 MG in 30 ML] Med 06/21/18 08:34 Active 0 mg IV ASDIRECTED PRN Naloxone [Narcan] Med 06/21/18 08:34 Active 0.1 mg IV ASDIRECTED PRN Nystatin [Nystatin Crm] Med 06/21/18 09:00 Active See Dose Instructions TOP BID Ropivacaine [Naropin 0.5%] 38 ml Med 06/22/18 07:15 Active Dexamethasone 8 mg EPINEPHrine [Adrenalin] 0.4 mg Sodium Chloride 0.9% [Normal Saline] 39.6 ml NERVRT ASDIRECTED Oral Care [OM.PC] BID Oth 06/21/18 16:30 Ordered Medication Orders Benzonatate (Tessalon Perles) 100 mg PO Q4H PRN PRN Reason: COUGH Last Admin: 06/22/18 01:52 Dose: 100 mg Ropivacaine 38 ml/Dexamethasone 8 mg/Epinephrine HCl 0.4 mg/ Sodium Chloride 39.6 ml 0 ml NERVRT ASDIRECTED [facility] Dextrose (Glutose 15) 15 gm PO ASDIRECTED PRN PRN Reason: HYPOGLYCEMIA Dextrose/Water (Dextrose 50% In Water) 50 ml IVPUSH ASDIRECTED PRN PRN Reason: HYPOGLYCEMIA Diphenhydramine HCl (Benadryl) 25 - 50 mg IVPUSH Q6H PRN PRN Reason: ITCHING Divalproex Sodium (Divalproex Sodium) 250 mg PO BID [facility] Last Admin: 06/21/18 19:59 Dose: 250 mg Admin: 06/21/18 08:38 Dose: 250 mg Admin: 06/20/18 22:46 Dose: 250 mg Glucagon (Glucagen) 1 mg IM ASDIRECTED PRN PRN Reason: HYPOGLYCEMIA Hydroxyzine HCl (Vistaril) 50 - 75 mg IM Q6H PRN PRN Reason: Pain (moderate 4-6) Last Admin: 06/20/18 20:57 Dose: 75 mg Dextrose/Lactated Ringer's (Dextrose 5%-Lactated Ringers) 1,000 mls @ 100 mls/ hr IV ASDIRECTED [facility] Last Admin: 06/22/18 05:34 Dose: 100 mls/hr Infusion: 06/22/18 05:34 Dose: 100 mls/hr Admin: 06/21/18 19:56 Dose: 100 mls/hr Infusion: 06/21/18 19:56 Dose: 100 mls/hr Admin: 06/21/18 16:58 Dose: 100 mls/hr Insulin Human Lispro (Humalog) 0 unit SUBCUT Q6H PRN; Protocol PRN Reason: MEDIUM CORRECTIONAL DOSING Last Admin: 06/21/18 23:46 Dose: 1 units Admin: 06/21/18 16:47 Dose: 1 units Admin: 06/21/18 10:39 Dose: 1 units Admin: 06/21/18 06:25 Dose: 2 units Admin: 06/20/18 22:46 Dose: 2 units Admin: 06/20/18 17:40 Dose: 2 units Morphine Sulfate (Morphine Director Insurance 150 Mg In 30 Ml) 0 mg IV ASDIRECTED PRN; Protocol PRN Reason: Pain Last Admin: 06/21/18 08:59 Dose: 150 mg Naloxone HCl (Narcan) 0.1 mg IV ASDIRECTED PRN PRN Reason: decreased respiratory rate Nystatin (Nystatin Crm) 0 gm TOP BID [facility] Last Admin: 06/21/18 20:01 Dose: 1 appful Admin: 06/21/18 08:38 Dose: 1 appful Ondansetron HCl (Zofran) 4 mg IVPUSH Q4H PRN PRN Reason: Nausea Last Admin: 06/21/18 21:04 Dose: 4 mg Admin: 06/21/18 04:00 Dose: 4 mg Pantoprazole Sodium (Protonix Iv) 40 mg IV Q24H [facility] Last Admin: 06/21/18 16:48 Dose: 40 mg Admin: 06/20/18 17:41 Dose: 40 mg - Assessment Assessment (Free Text/Narrative):: Pre-Op Diagnosis: Left renal mass Post-Op Diagnosis: Left renal mass Procedure: Exploratory laparotomy with left nephrectomy. Date of Surgery: 06/20/18 Surgeon: Boy Roberts MD - Plan Plan (Free Text/Narrative):: 1. Delayed primary closure on 06/22/18. 2. Orders to be input by Dr. Roberts after closure.
[2018-06-22] MEDS: Divalproex Sodium Delayed-Release 250 MG Tab.CR PO SCH ×2 (10:12→21:05)
[2018-06-22] MEDS: Nystatin Crm 15 GM Tube TOP SCH ×2 (10:13→21:05)
[2018-06-22] MEDS: Insulin Lispro 100 Unit/ML 3 ML KwikPen SUBCUT PRN ×3 (10:14→23:21)
[2018-06-22] MEDS: Pantoprazole 40 MG Vial IV SCH (16:30)
--- NOTE | 2018-06-22 20:40 | OR ---
DATE OF PROCEDURE: 06/22/2018 PREOPERATIVE DIAGNOSIS: Open abdominal incision. POSTOPERATIVE DIAGNOSIS: Open abdominal incision. OPERATIVE PROCEDURE: Delayed primary closure of an open abdominal incision. ANESTHESIA: Local plus IV sedation. INDICATION FOR PROCEDURE: The patient is status post an open laparotomy for a renal mass with the incision being adjacent to the ileostomy. Given this, he is felt to be high risk for wound infection. Primary closure is undertaken, and he is undergoing delayed primary closure at this time. The potential risks of the procedure, including bleeding and infection were reviewed, and the patient wishes to proceed. DETAILS OF PROCEDURE: The patient was taken to the operating room, and after IV sedation was administered and abdominal dressing was taken down. The wound was inspected and found to be clean. The area was then prepped and draped. Using ultrasound guidance, bilateral subcostal transversus abdominis plane blocks were then placed, and the incision was anesthetized with 1% lidocaine mixed with Marcaine and irrigated with meropenem-containing saline solution. A 10-[place]amo[place] round Bradley-Menendez drain was then placed through a stab wound inferior to the incision and sutured in with a 3-0 Vicryl stitch. The incision was then closed with layers of 3-0 and 4-0 Vicryl stitch deep and then rufino for the skin. The patient was taken to the recovery room in satisfactory condition. Boy Roberts MD /[id number]
[2018-06-23] MEDS: Insulin Lispro 100 Unit/ML 3 ML KwikPen SUBCUT PRN (04:34)
[2018-06-23] MEDS: Dextrose 5%-Lactated Ringers 1,000 ML IV SCH (07:13)
[2018-06-23] MEDS: Nystatin Crm 15 GM Tube TOP SCH ×2 (08:17→21:35)
[2018-06-23] MEDS: Divalproex Sodium Delayed-Release 250 MG Tab.CR PO SCH ×2 (09:30→21:34)
[2018-06-23] MEDS ORDERED: Insulin Lispro 100 Unit/ML 3 ML KwikPen SUBCUT PRN (11:51)
--- NOTE | 2018-06-23 11:59 | PN ---
DATE OF SERVICE: 06/23/2018 SUBJECTIVE: Yariel's vital signs have been stable. Pain has been managed. Oral intake on a clear liquid diet 820. Urine output via Nick catheter 4350. SOUMYA drain put out 10 mL, and pain has been controlled. Vital signs are stable. REVIEW OF SYSTEMS: Remainder of review of systems negative for any pertinent positives and negatives. OBJECTIVE: GENERAL: Yariel Hernandez is a 73-year-old male. VITAL SIGNS: TPR is 95.7, 85, 20, blood pressure 136/63. HEENT: Negative. NECK: Supple. HEART: Regular rate and rhythm. LUNGS: Clear. ABDOMEN: Negative. Ostomy in place. Small amount of stool noted. Dressing dry and intact. EXTREMITIES: Without peripheral edema. ASSESSMENT: 1. Exploratory laparotomy with lysis of extensive adhesions and left radical nephrectomy. 2. Placement of Vicryl mesh to displace pelvic and abdominal wall from underlying viscera for renal mass and extensive intraabdominal adhesions. Date of surgery 06/20/2018. Surgeon, Boy Roberts MD. 3. Delayed primary closure for open abdominal incision. Date of surgery 06/22/2018. Surgeon, Boy Roberts MD. PLAN: 1. Increase diet to full liquid diet. May advance as tolerated. 2. Check blood sugars q.i.d. 3. Discontinue Nick catheter. 4. Physical therapy evaluation and treatment. 5. Continue to work on pulmonary status. 6. We will evaluate p.r.n. or in a.m. Chen Santos PA-C /[id number]
[2018-06-23] MEDS ORDERED: oxyCODONE 5 MG Tab PO PRN (13:24)
[2018-06-23] MEDS ORDERED: Acetaminophen 325 MG Tab PO PRN (13:24)
[2018-06-23] MEDS: Pantoprazole 40 MG Tab.CR PO SCH ×2 (15:35→15:41)
[2018-06-24 07:41] VITALS: BP 141/69
[2018-06-24] MEDS: Divalproex Sodium Delayed-Release 250 MG Tab.CR PO SCH (09:01)
[2018-06-24] MEDS: Nystatin Crm 15 GM Tube TOP SCH (09:01)
--- NOTE | 2018-06-24 10:26 | DISCH ---
ADMISSION DIAGNOSES: 1. Left renal mass. 2. History of prostate cancer. 3. Diabetes type 2. 4. Chronic obstructive pulmonary disease. 5. Depression. 6. Hypertension. DISCHARGE DIAGNOSES: 1. Exploratory laparotomy with lysis of extensive adhesions. 2. Left radical nephrectomy. 3. Placement of Vicryl mesh to displace pelvic and abdominal wall from underlying viscera. 4. Left renal mass and extensive intraabdominal adhesions. 5. Delayed primary closure for open abdominal incision. Date of surgery, 06/22/2018. Surgeon, Boy Roberts MD. HISTORY: Yariel is a 73-year-old male who underwent imaging, which identified an enlarging left renal mass, highly suspicious for renal cell carcinoma. After preoperative evaluation and discussion of possible risks and possible complications, he wished to proceed with surgical procedure. HOSPITAL COURSE: Yariel had his surgery on 06/20/2018. He had no operative complications. On postoperative day #1, his pain was controlled. He was started on his home medications. He remained n.p.o., IV levels were decreased. On postoperative day #2, he had delayed primary closure and was started on a diet after that delayed primary closure. On postoperative day #3, he was advanced to a full-liquid diet. Blood sugars were checked four times a day. Nick catheter was discontinued. Physical therapy was started. He was up ambulating with assistance of one. He started having stool in his ostomy. On postoperative day #4, he was able to be discharged to home. Vital signs were stable. Oral intake and urinary output adequate and he had adequate stool in his ostomy. OBJECTIVE: GENERAL: Yariel Hernandez is a 73-year-old male. VITAL SIGNS: Height is 5 feet 6.93 inches, weight is 164 pounds. TPR is 96, 93, 18, blood pressure 141/69. HEENT: Negative. NECK: Supple. HEART: Regular rate and rhythm. LUNGS: Clear. ABDOMEN: Jorge A in place. SOUMYA drain in midline incision has been draining 10 to 15 mL that will be left in until 1st postoperative appointment. EXTREMITIES: Without peripheral edema. DISPOSITION: Discharged to retirement. CONDITION: Stable. FOLLOWUP: Followup appointment with Boy Roberts MD on 06/29/2018 at 10 a.m. HOME MEDICATIONS: Oxycodone 5 mg q.6 h. p.r.n. pain. He is to resume his home medications of Tylenol 650 mg q.6 hours p.r.n. pain, Beano 1 tab four times a day, benzonatate 100 mg every 4 hours p.r.n. cough, calcium carbonate/vitamin D 600/200 two tabs oral daily, divalproex sodium 250 mg oral twice daily, nystatin topical 3 times daily, Zoloft 50 mg daily, zinc oxide 1 g topical as directed, tramadol 50 mg every 6 hours p.r.n. pain., do not give with the oxycodone. DISCHARGE DIET: Usual diet as tolerated. Drink 8 to 10 glasses of water a day. ACTIVITY: No lifting greater than 10 pounds for 6 weeks. Other activity, walk at least 6 times daily with assistance. DISCHARGE INSTRUCTRIONS: Shower/bathing; may shower. No tub bathing or swimming for 8 weeks. Notify provider if any fever, increased pain, swelling, redness, drainage, nausea, or vomiting. Keep site clean and dry. Wear abdominal binder as tolerated for 6 weeks if it does not interfere with his ostomy. SPECIAL INSTRUCTIONS: 1. Strip empty measure and record SOUMYA drain 4 times a day and bring record of drainage to clinic appointment. 2. Use incentive spirometer 10 times every hour while awake for 1 week.
== END 2018-06-24 10:00 | DRG 658 ==
LOC: EDSTATUS 08:45 → JP.SDS 08:46 → JP.MS 08:46
PROVIDERS: ADMIT Surgery; ATTEND Surgery
PROC: 0WUF0JZ Supplement Abdominal Wall with Synthetic Substitute, Open Approach (ICD-10-PCS; principal; 2018-06-20)
PROC: 0DNW0ZZ Release Peritoneum, Open Approach (ICD-10-PCS; principal; 2018-06-20)
PROC: 0TT10ZZ Resection of Left Kidney, Open Approach (ICD-10-PCS; principal; 2018-06-20)
PROC: 0WQF0ZZ Repair Abdominal Wall, Open Approach (ICD-10-PCS; 2018-06-22)
DX: C64.2 Malignant neoplasm of left kidney, except renal pelvis (principal); E11.9 Type 2 diabetes mellitus without complications; J44.9 Chronic obstructive pulmonary disease, unspecified; F32.9 Major depressive disorder, single episode, unspecified; I10 Essential (primary) hypertension; K66.0 Peritoneal adhesions (postprocedural) (postinfection); C61 Malignant neoplasm of prostate; R35.0 Frequency of micturition; R39.15 Urgency of urination; Z93.2 Ileostomy status; Z79.899 Other long term (current) drug therapy; Z91.040 Latex allergy status; Z90.49 Acquired absence of other specified parts of digestive tract
CPT/HCPCS: 36415; 80053; 82962; 83735; 83880; 84100; 85025; 85027; 86850; 86900; 86901; 88307; 88341; 88342; 94762; 97110-GP; 97162-GP; 97530-GP; A9270-GY; C9113; J0131; J0171; J0330; J0690; J0694; J1100; J1815; J2185; J2270; J2370; J2405; J2704; J2710; J2795; J3010; J3410; J3490; J7042; J7050; J7120

== ENCOUNTER 2018-07-05 02:46 | Emergency (ER) | payer MEDICARE, BC, MEDICAID ==
--- NOTE | 2018-07-05 03:31 | EDM.PDOC ---
ED HPI GENERAL MEDICAL PROBLEM - General Chief Complaint: Head Injury Stated Complaint: FALL Time Seen by Provider: 07/05/18 03:20 Source of Information: Reports: Patient, EMS, Family - History of Present Illness INITIAL COMMENTS - FREE TEXT/NARRATIVE: 73-year-old male lives in a halfway stumbled out of his chair tonight landing on his right knee, his right arm, and struck his face on the floor. He sustained a small puncture laceration on the left eyebrow and had epistaxis. Also has some skin tears on the right arm and pain of his right knee. Onset: Sudden Duration: Hour(s): (Within the last hour) Face/Facial Pain Score (Numeric/FACES): 10 - Related Data Allergies Allergy/AdvReac Type Severity Reaction Status Date / Time latex Allergy Rash Verified 07/05/18 02:49 Home Meds: Home Meds Matthew 1 tab PO QID 01/08/17 [History] Sertraline [Zoloft] 50 mg PO DAILY 02/27/18 [History] traMADol HCl [Tramadol HCl] 50 mg PO Q6HR PRN 06/09/18 [History] Divalproex Sodium 250 mg PO BID 06/20/18 [History] Acetaminophen [Tylenol] 2 tab PO Q6H PRN 07/05/18 [History] Calcium Carbonate/Vitamin D3 [Calcium 600 + Vit D 400 Tablet] 1 each PO BID 04/13 [History] Past Medical History HEENT History: Reports: Cataract, Impaired Vision Cardiovascular History: Reports: Angina, High Cholesterol, Hypertension, SOB on Exertion Respiratory History: Reports: COPD Genitourinary History: Reports: Renal Calculus Other Genitourinary History: 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 Musculoskeletal History: Reports: Back Pain, Chronic, Neck Pain, Chronic Other Neuro History: right side partial paralysis Psychiatric History: Reports: Anxiety, Depression Endocrine/Metabolic History: Reports: Diabetes, Type II Other Endocrine/Metabolic History: NON INSULIN Hematologic History: Reports: None Oncologic (Cancer) History: Reports: Other (See Below) Other Oncologic History: kidney cancer Other Dermatologic History: yeast infection - Infectious Disease History Infectious Disease History: Reports: Chicken Pox, Measles, Mumps, Pertussis ( Whooping Cough) - Past Surgical History GI Surgical History: Reports: Hernia, Abdominal, Other (See Below) Other GI Surgeries/Procedures: colon surgery with illeostomy Male Surgical History: Reports: Nephrectomy Other Male Surgeries/Procedures: left nephrectomy Other Neurological Surgeries/Procedures: partial severed c-spine - plate in place Musculoskeletal Surgical History: Reports: Knee Replacement Social & Family History - Family History Family Medical History: Noncontributory - Tobacco Use Smoking Status *Q: Never Smoker - Caffeine Use Caffeine Use: Reports: Coffee - Recreational Drug Use Recreational Drug Use: No ED ROS GENERAL - Review of Systems Review Of Systems: See Below Constitutional: Denies: Fever HEENT: Reports: Nosebleed (Now controlled), Other (Facial pain, contusions) Respiratory: Denies: Shortness of Breath GI/Abdominal: Reports: No Symptoms Musculoskeletal: Reports: Other (Right knee pain, chronic neck and back pain) Skin: Reports: Other (Superficial skin tears in the right arm) Neurological: Reports: Headache ED EXAM, HEAD INJURY - Physical Exam Exam: See Below Exam Limited By: No Limitations General Appearance: Alert, No Apparent Distress Head: Other (Several superficial abrasions and bruises across the eyebrows, nasal bridge and cheek. A 1 cm laceration, closed, was present on the upper left eyelid) Nose: Nasal Deformity (Appears to have some deformity of the nasal bone unknown if chronic) Throat/Mouth: Other (No evidence of trauma to the mouth) Neck: Other (Still with range of motion, chronic) Respiratory: No Respiratory Distress Extremities: Other (Superficial skin tears on the right forearm, abrasion over the right patella) Course - Vital Signs Last Recorded V/S: Last Vital Signs Temp 95.9 F 07/05/18 02:53 Pulse 80 07/05/18 05:30 Resp 14 07/05/18 05:30 BP 110/60 07/05/18 05:30 Pulse Ox 99 07/05/18 04:52 - Orders/Labs/Meds Labs: Laboratory Tests 07/05/18 07/05/18 07/05/18 Range/Units 03:32 04:10 04:10 WBC 14.1 H (4.5-11.0) K/uL RBC 4.81 (4.30-5.90) M/uL Hgb 12.7 D (12.0-15.0) g/dL Hct 41.6 (40.0-54.0) % MCV 87 (80-98) fL MCH 26 L (27-31) pg MCHC 31 L (32-36) % Plt Count 624 H (150-400) K/uL Neut % (Auto) 84 H (36-66) % Lymph % (Auto) 6 L (24-44) % Posey % (Auto) 7 H (2-6) % Eos % (Auto) 2 (2-4) % Baso % (Auto) 0 (0-1) % Sodium 134 L (140-148) mmol/L Potassium 4.7 (3.6-5.2) mmol/L Chloride 99 L (100-108) mmol/L Carbon Dioxide 23 (21-32) mmol/L Anion Gap 16.7 H (5.0-14.0) mmol/L BUN 26 H D (7-18) mg/dL Creatinine 1.6 H D (0.8-1.3) mg/dL Est Cr Clr Drug Dosing 37.87 mL/min Estimated GFR (MDRD) 42 L (>60) Glucose 158 H (74-106) mg/dL Calcium 9.0 D (8.5-10.1) mg/dL Total Bilirubin 0.2 (0.2-1.0) mg/dL AST 25 (15-37) U/L ALT 19 (12-78) U/L Alkaline Phosphatase 522 H (46-116) U/L Creatine Kinase 132 (39-308) U/L Total Protein 8.3 H (6.4-8.2) g/dL Albumin 3.1 L (3.4-5.0) g/dL Globulin 5.2 H (2.3-3.5) g/dL Albumin/Globulin Ratio 0.6 L (1.2-2.2) Meds: Medications Discontinued Medications Generic Name Dose Route Start Last Admin Trade Name Freq PRN Reason Stop Dose Admin Sodium Chloride 500 mls @ 1,000 mls/hr 07/05/18 04:00 07/05/18 03:55 Normal Saline IV 1,000 mls/hr ASDIRECTED RUBIA Administration Sodium Chloride 500 mls @ 1,000 mls/hr 07/05/18 05:15 07/05/18 05:10 Normal Saline IV 1,000 mls/hr ASDIRECTED RUBIA Administration - Re-Assessments/Exams Free Text/Narrative Re-Assessment/Exam: 07/05/18 03:37 CT without contrast of the head and facial bones along with a regular x-ray of the right knee. 07/05/18 05:05 Knee x-ray was negative for fracture, CT of the head was normal. Patient persisted to be hypotensive so was given initially a bolus of 500 mL normal saline, systolic improved so while we were waiting for CT results of the maxillofacial bones 500 additional cc was given. 07/05/18 05:06 Maxillofacial bones were negative other than a nasal fracture, unknown age. Because of the nasal bone tenderness and mechanism of injury, it is likely a new injury. Departure - Departure Time of Disposition: 05:44 Disposition: DC/Tfer to [facility] 62 Condition: Fair Clinical Impression: Contusion of face Qualifiers: Encounter type: initial encounter Qualified Code(s): S00.83XA - Contusion of other part of head, initial encounter Laceration of eyebrow, left Qualifiers: Encounter type: initial encounter Qualified Code(s): S01.112A - Laceration without foreign body of left eyelid and periocular area, initial encounter Skin tear of forearm without complication Qualifiers: Encounter type: initial encounter Laterality: right Qualified Code(s): S51.811A - Laceration without foreign body of right forearm, initial encounter Contusion of knee, right Qualifiers: Encounter type: initial encounter Qualified Code(s): S80.01XA - Contusion of right knee, initial encounter - Discharge Information Instructions: Contusion, [id number] Referrals: Juarez Wall Sr, MD [Primary Care Provider] - Forms: ED Department Discharge Care Plan Goals: Cool compresses to sore areas should help over the next several days, increase activity as tolerated. Keep skin tears clean while healing.
[2018-07-05] MEDS ORDERED: Sodium Chloride 0.9% 500 ML IV SCH ×2 (04:00→05:15)
--- NOTE | 2018-07-05 04:58 | CRLCR ---
Indication: Fall, pain Technique: Four views right knee Comparison: None Findings: Bones: Osteopenia. Alignment is normal. No fractures or bone lesions. Joint spaces: Moderate degenerative changes in the medial and patellofemoral compartments. Soft tissues: Unremarkable. Impression: No acute abnormality. Moderate degenerative changes in the medial and patellofemoral compartments of the knee joint. Dictated by Lucía Ferguson MD @ Jul 05 2018 4:54AM Signed by Dr. Lucía Ferguson @ Jul 05 2018 4:56AM
--- NOTE | 2018-07-05 05:02 | CRLCT ---
INDICATION: Fall TECHNIQUE: Head CT without contrast. COMPARISON: February 27, 2018 FINDINGS: CSF spaces: Within normal limits for age. Brain parenchyma: There are nonspecific low attenuation white matter changes consistent with chronic microvascular disease. No sign of mass, hemorrhage, or midline shift. Skull base and calvarium: Mucosal thickening of the maxillary sinuses bilaterally. Remainder of the paranasal sinuses are normally aerated. The mastoid air cells demonstrate no acute or significant findings. The visualized orbits are grossly unremarkable. No skull fractures. There is intracranial atherosclerosis. Left forehead contusion and laceration. IMPRESSION: 1. No acute intracranial hemorrhage or skull fracture. Left forehead contusion and laceration. 2. Nonspecific white matter disease, typical of chronic microvascular disease. Please note that all CT scans at this facility use dose modulation, iterative reconstruction, and/or weight-based dosing when appropriate to reduce radiation dose to as low as reasonably achievable. Dictated by Lucía Ferguson MD @ Jul 05 2018 5:00AM Signed by Dr. Lucía Ferguson @ Jul 05 2018 5:00AM
--- NOTE | 2018-07-05 05:06 | CRLCT ---
INDICATION: Fall TECHNIQUE: CT maxillofacial without contrast. COMPARISON: None FINDINGS: Facial bones: Minimally displaced nasal bone fracture of unknown age. No additional fractures or bone lesions. Specifically the temporomandibular joints, maxilla and mandible appear intact. Orbits and globes: Unremarkable. Sinuses: Thickening of the bilateral maxillary sinus mucosa. Soft tissues: Left forehead contusion and laceration. Diffuse sclerotic lesions within the visualized portions of the cervical spine. Status post anterior plate and screw hardware at C3-C4. IMPRESSION: Minimally displaced nasal bone fracture of unknown age. Correlation with pain or tenderness. Left forehead contusion and laceration. Diffuse sclerotic lesions in the cervical spine. Correlate with history of malignancy. Please note that all CT scans at this facility use dose modulation, iterative reconstruction, and/or weight-based dosing when appropriate to reduce radiation dose to as low as reasonably achievable. Dictated by Lucía Ferguson MD @ Jul 05 2018 5:05AM Signed by Dr. Lucía Ferguson @ Jul 05 2018 5:05AM
[2018-07-05 06:08] VITALS: BP 110/60
== END 2018-07-05 07:15 ==
LOC: JP.ED 02:46
DX: S01.112A Laceration without foreign body of left eyelid and periocular area, initial encounter (principal); S51.811A Laceration without foreign body of right forearm, initial encounter; S00.83XA Contusion of other part of head, initial encounter; S80.01XA Contusion of right knee, initial encounter; I10 Essential (primary) hypertension; E11.9 Type 2 diabetes mellitus without complications; F41.9 Anxiety disorder, unspecified; F32.9 Major depressive disorder, single episode, unspecified; Z91.040 Latex allergy status; Z79.899 Other long term (current) drug therapy; W07.XXXA Fall from chair, initial encounter; R11.2 Nausea with vomiting, unspecified; Z91.041 Radiographic dye allergy status
CPT/HCPCS: 36415; 70450; 70486; 73562; 80053; 82550; 85025; 96360; 99284; 99285; A9270; J7030

== ENCOUNTER 2018-07-05 17:41 | Emergency (ER) | payer MEDICARE, BC, MEDICAID ==
[2018-07-05 17:47] VITALS: BP 94/52
[2018-07-05] MEDS ORDERED: Ondansetron 4 MG Tab.DIS PO ONE (18:17)
--- NOTE | 2018-07-05 18:18 | EDM.PDOC ---
ED HPI GENERAL MEDICAL PROBLEM - General Chief Complaint: Gastrointestinal Problem Stated Complaint: MEDICAL Time Seen by Provider: 07/05/18 18:10 Source of Information: Reports: Patient, Correction Records History Limitations: Reports: No Limitations - History of Present Illness INITIAL COMMENTS - FREE TEXT/NARRATIVE: 73-year-old male who was seen overnight last night after a fall, is sent back to the emergency room today because of persistent vomiting and recurring epistaxis. He has no bleeding currently, still feels nauseous but no abdominal pain. He has not been given anything for nausea. - Related Data Allergies Allergy/AdvReac Type Severity Reaction Status Date / Time latex Allergy Rash Verified 07/05/18 17:43 Home Meds: Home Meds Matthew 1 tab PO QID 01/08/17 [History] Sertraline [Zoloft] 50 mg PO DAILY 02/27/18 [History] traMADol HCl [Tramadol HCl] 50 mg PO Q6HR PRN 06/09/18 [History] Divalproex Sodium 250 mg PO BID 06/20/18 [History] Acetaminophen [Tylenol] 2 tab PO Q6H PRN 07/05/18 [History] Calcium Carbonate/Vitamin D3 [Calcium 600 + Vit D 400 Tablet] 1 each PO BID 04/13 [History] Past Medical History HEENT History: Reports: Cataract, Impaired Vision Cardiovascular History: Reports: Angina, High Cholesterol, Hypertension, SOB on Exertion Respiratory History: Reports: COPD Gastrointestinal History: Reports: None Genitourinary History: Reports: Renal Calculus Other Genitourinary History: 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 Musculoskeletal History: Reports: Back Pain, Chronic, Neck Pain, Chronic Neurological History: Reports: Other (See Below) Other Neuro History: right side partial paralysis Psychiatric History: Reports: Anxiety, Depression Endocrine/Metabolic History: Reports: Diabetes, Type II Other Endocrine/Metabolic History: NON INSULIN Hematologic History: Reports: None Oncologic (Cancer) History: Reports: Other (See Below) Other Oncologic History: kidney cancer Other Dermatologic History: yeast infection - Infectious Disease History Infectious Disease History: Reports: Chicken Pox, Measles, Mumps, Pertussis ( Whooping Cough) - Past Surgical History Head Surgeries/Procedures: Reports: None HEENT Surgical History: Reports: None Cardiovascular Surgical History: Reports: None Respiratory Surgical History: Reports: None GI Surgical History: Reports: Hernia, Abdominal, Other (See Below) Other GI Surgeries/Procedures: colon surgery with illeostomy Male Surgical History: Reports: Nephrectomy Other Male Surgeries/Procedures: left nephrectomy Endocrine Surgical History: Reports: None Neurological Surgical History: Reports: Other (See Below) Other Neurological Surgeries/Procedures: partial severed c-spine - plate in place Musculoskeletal Surgical History: Reports: Knee Replacement Oncologic Surgical History: Reports: None Dermatological Surgical History: Reports: None Social & Family History - Family History Family Medical History: Noncontributory - Tobacco Use Smoking Status *Q: Never Smoker Second Hand Smoke Exposure: No - Caffeine Use Caffeine Use: Reports: Coffee, Soda, Tea - Recreational Drug Use Recreational Drug Use: No ED ROS GENERAL - Review of Systems Review Of Systems: See Below Constitutional: Denies: Fever, Chills HEENT: Denies: Vision Change Respiratory: Denies: Shortness of Breath GI/Abdominal: Reports: Nausea, Vomiting. Denies: Abdominal Pain Skin: Reports: Bruising (Significant bruising around the left eye from his previous fall) ED EXAM, GI/ABD - Physical Exam Exam: See Below Exam Limited By: No Limitations General Appearance: Alert, No Apparent Distress Eyes: Bilateral: EOMI Head: Other (Periorbital ecchymosis, slight swelling over the nasal bridge) Respiratory/Chest: No Respiratory Distress, Lungs Clear GI/Abdominal Exam: Soft, Non-Tender Neurological: Oriented Psychiatric: Normal Affect, Normal Mood Course - Vital Signs Last Recorded V/S: Last Vital Signs Temp 95 F L 07/05/18 17:45 Pulse 97 07/05/18 17:45 Resp 16 07/05/18 17:45 BP 94/52 L 07/05/18 17:45 Pulse Ox 99 07/05/18 17:45 - Orders/Labs/Meds Meds: Medications Discontinued Medications Generic Name Dose Route Start Last Admin Trade Name Freq PRN Reason Stop Dose Admin Ondansetron HCl 4 mg 07/05/18 18:17 07/05/18 18:30 Zofran Odt PO 07/05/18 18:18 4 mg ONETIME ONE Administration - Re-Assessments/Exams Free Text/Narrative Re-Assessment/Exam: 07/05/18 19:23 No further workup was done as the patient had a full workup last evening. Patient was given 4 mg of sublingual Zofran and within a half hour was able to drink water without nausea. He'll return back to [facility] with a Zofran dose every 4 hours when necessary. Departure - Departure Time of Disposition: 20:25 Disposition: DC/Tfer to [facility] Condition: Fair Clinical Impression: Nausea and vomiting Qualifiers: Vomiting type: unspecified Vomiting Intractability: non-intractable Qualified Code(s): R11.2 - Nausea with vomiting, unspecified - Discharge Information Instructions: Nausea and Vomiting, Adult Referrals: PCP,None [Primary Care Provider] - Forms: ED Department Discharge Care Plan Goals: Use Zofran 4 mg sublingual every 4 hours as needed for persistent nausea and vomiting. Resume other regular medications. Recheck in 12-24 hours if not improving satisfactorily. Concentrate on liquids initially, and advance diet as tolerated.
== END 2018-07-05 20:28 ==
LOC: JP.ED 17:41
DX: R11.2 Nausea with vomiting, unspecified (principal); I10 Essential (primary) hypertension; E11.9 Type 2 diabetes mellitus without complications; F41.9 Anxiety disorder, unspecified; F32.9 Major depressive disorder, single episode, unspecified; Z79.899 Other long term (current) drug therapy; Z91.041 Radiographic dye allergy status
CPT/HCPCS: 99284; A9270

== ENCOUNTER 2019-04-01 23:12 | Emergency (ER) | payer MEDICARE, BC, MEDICAID ==
[2019-04-01 23:28] VITALS: PULSE 77
[2019-04-01] MEDS ORDERED: Ketorolac 60 MG/2 ML SDV IM ONE (23:50)
--- NOTE | 2019-04-01 23:52 | EDM.PDOC ---
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: Other Medication(s) Headache Pain Score (Numeric/FACES): 8 - Related Data Allergies Allergy/AdvReac Type Severity Reaction Status Date / Time latex Allergy Rash Verified 07/05/18 17:43 Home Meds: Home Meds Matthew 1 tab PO QID 01/08/17 [History] Sertraline [Zoloft] 50 mg PO DAILY 02/27/18 [History] traMADol HCl [Tramadol HCl] 50 mg PO Q6HR PRN 06/09/18 [History] Divalproex Sodium 250 mg PO BID 06/20/18 [History] Calcium Carbonate/Vitamin D3 [Calcium 600 + Vit D 400 Tablet] 1 each PO BID 04/13 [History] Abiraterone Acetate [Zytiga] 1,000 mg PO DAILY 04/01/19 [History] Fludrocortisone [Florinef] 0.1 mg PO DAILY 04/01/19 [History] Omeprazole 20 mg PO DAILY 04/01/19 [History] predniSONE [Prednisone] 5 mg PO DAILY 04/01/19 [History] Past Medical History HEENT History: Reports: Cataract, Impaired Vision Cardiovascular History: Reports: Angina, High Cholesterol, Hypertension, SOB on Exertion Respiratory History: Reports: COPD Genitourinary History: Reports: Renal Calculus Other Genitourinary History: 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; kidney removed Musculoskeletal History: Reports: Arthritis, Back Pain, Chronic, Neck Pain, Chronic Neurological History: Reports: CVA, Other (See Below) Other Neuro History: right side partial paralysis Psychiatric History: Reports: Anxiety, Depression Endocrine/Metabolic History: Reports: Diabetes, Type II Other Endocrine/Metabolic History: NON INSULIN Hematologic History: Reports: None Immunologic History: Reports: Immunosuppression Oncologic (Cancer) History: Reports: Bone, Prostate, Other (See Below) Other Oncologic History: kidney cancer Other Dermatologic History: yeast infection - Infectious Disease History Infectious Disease History: Reports: Measles, Mumps - Past Surgical History HEENT Surgical History: Reports: None Cardiovascular Surgical History: Reports: None Respiratory Surgical History: Reports: None GI Surgical History: Reports: Colostomy, Hernia, Abdominal, Other (See Below) Other GI Surgeries/Procedures: colon surgery with illeostomy Male Surgical History: Reports: Nephrectomy Other Male Surgeries/Procedures: left nephrectomy Endocrine Surgical History: Reports: None Neurological Surgical History: Reports: Other (See Below) Other Neurological Surgeries/Procedures: partial severed c-spine - plate in place Musculoskeletal Surgical History: Reports: Knee Replacement Oncologic Surgical History: Reports: None, Other (See Below) Other Oncologic Surgeries/Procedures: kidney removal, removal of digestive tract Dermatological Surgical History: Reports: None Social & Family History - Family History Family Medical History: Noncontributory - Tobacco Use Smoking Status *Q: Never Smoker - Caffeine Use Caffeine Use: Reports: Coffee, Soda, Tea - Recreational Drug Use Recreational Drug Use: No ED ROS GENERAL - Review of Systems Review Of Systems: See Below Constitutional: Reports: No Symptoms HEENT: Reports: No Symptoms Respiratory: Reports: No Symptoms Cardiovascular: Reports: No Symptoms GI/Abdominal: Reports: No Symptoms : Reports: No Symptoms Neurological: Reports: Headache - Physical Exam Exam: See Below Exam Limited By: No Limitations General Appearance: Alert, Mild Distress Eye Exam: Bilateral Eye: Normal Inspection Respiratory/Chest: No Respiratory Distress, Lungs Clear, Normal Breath Sounds, No Accessory Muscle Use, Chest Non-Tender Cardiovascular: Regular Rate, Rhythm, No Murmur Course - Vital Signs Last Recorded V/S: Last Vital Signs Temp 96.9 F 04/01/19 23:23 Pulse 77 04/01/19 23:23 Resp 16 04/01/19 23:23 BP 167/93 H 04/01/19 23:23 Pulse Ox 97 04/01/19 23:23 - Orders/Labs/Meds Meds: Medications Discontinued Medications Generic Name Dose Route Start Last Admin Trade Name Freq PRN Reason Stop Dose Admin Ketorolac Tromethamine 60 mg 04/01/19 23:50 04/01/19 23:59 Toradol IM 04/01/19 23:51 60 mg ONETIME ONE Administration Departure - Departure Time of Disposition: 01:01 Disposition: DC/Tfer to [facility] Condition: Poor Clinical Impression: Headache Qualifiers: Headache type: unspecified Headache chronicity pattern: chronic headache Intractability: not intractable Qualified Code(s): R51 - Headache - Discharge Information Referrals: Juarez Wall Sr, MD [Primary Care Provider] - Forms: ED Department Discharge Additional Instructions: Follow-up primary care as needed - Assessment/Plan Plan: Assessment Acuity = acute Site and laterality = had a complicated gentleman with known history of prostate cancer with metastases Etiology = unknown Manifestations = none Location of injury = Home Lab values = none Plan Good relief with Toradol he was able to get some rest discharged back to [facility] follow-up with primary care as needed This note was dictated using [employer] voice recognition software please call with any questions on syntax or grammar.
[2019-04-02 04:40] VITALS: BP 177/87
== END 2019-04-02 04:40 ==
LOC: JP.ED 23:12
DX: R51 Headache (principal); I10 Essential (primary) hypertension; J44.9 Chronic obstructive pulmonary disease, unspecified; E11.9 Type 2 diabetes mellitus without complications; F32.9 Major depressive disorder, single episode, unspecified; Z91.040 Latex allergy status; Z86.73 Personal history of transient ischemic attack (TIA), and cerebral infarction without residual deficits; Z79.52 Long term (current) use of systemic steroids; Z79.899 Other long term (current) drug therapy; Z85.830 Personal history of malignant neoplasm of bone; Z85.46 Personal history of malignant neoplasm of prostate
CPT/HCPCS: 96372; 99284; J1885

== ENCOUNTER 2020-01-07 14:52 | Emergency (ER) | payer MEDICARE, BC, MEDICAID ==
[2020-01-07 15:01] VITALS: PULSE 81
[2020-01-07 15:32] VITALS: BP 135/78
--- NOTE | 2020-01-07 15:34 | EDM.PDOC ---
ED HPI GENERAL MEDICAL PROBLEM - General Chief Complaint: Genitourinary Problem Stated Complaint: [facility] Time Seen by Provider: 01/07/20 15:10 Source of Information: Reports: Patient, EMS, Half-Way Records History Limitations: Reports: No Limitations - History of Present Illness INITIAL COMMENTS - FREE TEXT/NARRATIVE: 74-year-old male [facility] because of increased urinary frequency and "change in mentation". His vitals are normal and he seems very clear at this time, talking about the football game other topics. No fever. Does have several episodes of urgent urination while in the emergency room. No dysuria Onset: Unknown/Unsure Associated Symptoms: Reports: Confusion (Some mild confusion according to the penitentiary, this is not evident at the emergency room). Denies: Fever/Chills, Malaise, Shortness of Breath - Related Data Allergies Allergy/AdvReac Type Severity Reaction Status Date / Time latex Allergy Rash Verified 01/07/20 15:06 Home Meds: Home Meds Matthew 1 tab PO QID 01/08/17 [History] Sertraline [Zoloft] 50 mg PO DAILY 02/27/18 [History] traMADol HCl [Tramadol HCl] 50 mg PO Q6HR PRN 06/09/18 [History] Divalproex Sodium 500 mg PO BID 06/20/18 [History] Calcium Carbonate/Vitamin D3 [Calcium 600 + Vit D 400 Tablet] 1 each PO BID 07/05/18 [History] Abiraterone Acetate [Zytiga] 1,000 mg PO DAILY 04/01/19 [History] Fludrocortisone [Florinef] 0.1 mg PO DAILY 04/01/19 [History] Omeprazole 20 mg PO DAILY 04/01/19 [History] predniSONE [Prednisone] 5 mg PO BID 04/01/19 [History] Acetaminophen/HYDROcodone [[place] 325-5 MG] 1 tab PO Q6H PRN 01/07/20 [History] Furosemide [Lasix] 20 mg PO BID 01/07/20 [History] Sennosides/Docusate Sodium [Senna Plus 8.6-50 mg Softgel] 1 each PO DAILY 01/07/20 [History] Simethicone 125 mg PO BID 01/07/20 [History] Past Medical History HEENT History: Reports: Cataract, Impaired Vision Cardiovascular History: Reports: Angina, High Cholesterol, Hypertension, SOB on Exertion Respiratory History: Reports: COPD Genitourinary History: Reports: Renal Calculus Other Genitourinary History: 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; kidney removed Musculoskeletal History: Reports: Arthritis, Back Pain, Chronic, Neck Pain, Chronic Neurological History: Reports: CVA, Other (See Below) Other Neuro History: right side partial paralysis Psychiatric History: Reports: Anxiety, Depression Endocrine/Metabolic History: Reports: Diabetes, Type II Other Endocrine/Metabolic History: NON INSULIN Hematologic History: Reports: None Immunologic History: Reports: Immunosuppression Oncologic (Cancer) History: Reports: Bone, Prostate, Other (See Below) Other Oncologic History: kidney cancer Other Dermatologic History: yeast infection - Infectious Disease History Infectious Disease History: Reports: Other (See Below) Other Infectious Disease History: unknown per patient - Past Surgical History HEENT Surgical History: Reports: None Cardiovascular Surgical History: Reports: None Respiratory Surgical History: Reports: None Male Surgical History: Reports: Nephrectomy Other Male Surgeries/Procedures: left nephrectomy Endocrine Surgical History: Reports: None Neurological Surgical History: Reports: Other (See Below) Other Neurological Surgeries/Procedures: partial severed c-spine - plate in place Musculoskeletal Surgical History: Reports: Knee Replacement Oncologic Surgical History: Reports: None, Other (See Below) Other Oncologic Surgeries/Procedures: kidney removal, removal of digestive tract Dermatological Surgical History: Reports: None Social & Family History - Family History Family Medical History: Noncontributory - Tobacco Use Smoking Status *Q: Never Smoker - Caffeine Use Caffeine Use: Reports: Coffee, Tea - Recreational Drug Use Recreational Drug Use: No ED ROS GENERAL - Review of Systems Review Of Systems: See Below Constitutional: Denies: Fever, Chills Respiratory: Denies: Shortness of Breath Cardiovascular: Denies: Chest Pain GI/Abdominal: Reports: Other (Patient has a colostomy). Denies: Abdominal Pain : Reports: Frequency, Urgency. Denies: Dysuria Skin: Reports: No Symptoms ED EXAM, RENAL/ - Physical Exam Exam: See Below Text/Narrative:: Vital signs are normal Exam Limited By: No Limitations General Appearance: Alert, No Apparent Distress, Other (Patient is talkative and in no distress) Respiratory/Chest: No Respiratory Distress Cardiovascular: Regular Rate, Rhythm GI/Abdominal: Soft, Non-Tender, Other (Well-healed surgical scars, colostomy is present) Neurological: Alert, Confused (Minimally confused which I think is his baseline) Skin Exam: Warm, Dry Course - Vital Signs Last Recorded V/S: Last Vital Signs Temp 97.4 F 01/07/20 15:01 Pulse 81 01/07/20 15:31 Resp 16 01/07/20 15:31 BP 135/78 01/07/20 15:31 Pulse Ox 96 01/07/20 15:31 - Orders/Labs/Meds Labs: Laboratory Tests 01/07/20 Range/Units 16:17 Urine Color Yellow (YELLOW) Urine Appearance Clear (CLEAR) Urine pH 5.5 (5.0-8.0) Ur Specific [place] 1.020 (1.008-1.030) Urine Protein Negative (NEGATIVE) mg/dL Urine Glucose (UA) Negative (NEGATIVE) mg/dL Urine Ketones Negative (NEGATIVE) mg/dL Urine Occult Blood Negative (NEGATIVE) Urine Nitrite Negative (NEGATIVE) Urine Bilirubin Negative (NEGATIVE) Urine Urobilinogen 0.2 (0.2-1.0) EU/dL Ur Leukocyte Esterase Negative (NEGATIVE) Urine RBC Not seen (0-5) Urine WBC Not seen (0-5) Ur Epithelial Cells Not seen Urine Bacteria Not seen - Re-Assessments/Exams Free Text/Narrative Re-Assessment/Exam: 01/07/20 15:34 A urine was obtained which looks grossly clear. UA was ordered. 01/07/20 16:31 Patient remained asymptomatic, mentally stable while in the emergency room and his UA returned normal. He will be sent back to [facility]. Departure - Departure Time of Disposition: 16:49 Disposition: Home, Self-Care 01 Clinical Impression: Weakness, Increased urinary frequency - Discharge Information Instructions: Weakness Referrals: PCP,None [Primary Care Provider] - Forms: ED Department Discharge Care Plan Goals: Resume regular medications and activity. Call his primary provider if worsening such as fever, increased symptoms or shortness of breath. Sepsis Event Note (ED) - Evaluation Sepsis Screening Result: No Definite Risk
== END 2020-01-07 16:49 | disposition home or self-care (01) ==
LOC: JP.ED 14:52
DX: R35.0 Frequency of micturition (principal); R53.1 Weakness; I10 Essential (primary) hypertension; J44.9 Chronic obstructive pulmonary disease, unspecified; Z86.73 Personal history of transient ischemic attack (TIA), and cerebral infarction without residual deficits; M19.90 Unspecified osteoarthritis, unspecified site; F41.9 Anxiety disorder, unspecified; F32.9 Major depressive disorder, single episode, unspecified; E11.9 Type 2 diabetes mellitus without complications; Z91.040 Latex allergy status; Z79.899 Other long term (current) drug therapy
CPT/HCPCS: 81001; 99283; 99285